=== PATIENT | female | born 1945 | race Caucasian/White ===

== ENCOUNTER 2016-05-22 21:39 | Day surgery (SDC) | payer MEDICARE ==
[~2016-05-22] VITALS: Ht 154.9 cm; Wt 90.3 kg
[~2016-05-22 21:39] MED LIST: CA C1TAB78 PO; CETI10TA17 PO; CHOL10003 PO; CHOL100048 PO; DOXY100C2 PO; ENAL2.5T PO; HCT25T PO; HYDR25TA4 PO; KCL10CCR PO; LEVO100T PO; LVT.112T PO; PANT40TA3 PO; PNT40TEC PO; POTA10CA43 PO; PRD1T PO; PRED5TAB PO; SULF500T5 PO; SULF500T7 PO; TAPE50TA PO
--- NOTE | 2016-05-22 21:45 | ED General ---
General Chief Complaint: Abdominal/GI Problems Stated Complaint: N/V Source of Information: Patient, EMS (ZAY RICARDO APRN) History of Present Illness Time Seen by Provider: 21:43 Initial Comments To ER per EMS from home with sudden onset nausea vomiting and shortness of breath. She does not have any diarrhea. She does have a history of colitis she reports however. This began suddenly 2 hours prior to arrival and she has some vague abdominal discomfort that is not intense. She denies fevers or chills. She states that she was very short of breath initially, but at this time she states "only a little". She also reports that she felt quite anxious. Timing/Duration: 1-3 Hours Severity: Moderate Associated Systoms: Nausea/Vomiting (ZAY RICARDO APRN) Allergies and Home Medications Allergies Coded Allergies: ciprofloxacin (Verified Allergy, Severe, COLITIS, 04/05/15) Tetracyclines (Verified Allergy, Mild, RASH, 04/05/15) acetaminophen (Verified Allergy, Mild, COLITIS, 04/05/15) amoxicillin (Verified Allergy, Mild, COLITIS, 04/05/15) aspirin (Verified Allergy, Mild, COLITIS, 04/05/15) codeine (Verified Allergy, Mild, COLITIS, 04/05/15) naproxen sodium (Verified Allergy, Mild, COLITIS, 04/05/15) indapamide (Verified Allergy, Unknown, 04/05/15) ranitidine HCl (Verified Allergy, Unknown, RASH, 04/05/15) Home Medications Ca Carb & Gluc/Mag Ox & Gluc 1 Each Tablet 1 TAB PO DAILY (Reported) Cetirizine HCl 10 Mg Tablet 10 MG PO DAILY (Reported) Cholecalciferol (Vitamin D3) 1,000 Unit Capsule 1,000 UNIT PO DAILY (Reported) Hydrochlorothiazide 25 Mg Tablet 25 MG PO DAILY (Reported) Levothyroxine Sodium 100 Mcg Tablet 100 MCG PO DAILY (Reported) Pantoprazole Sodium 40 Mg Tablet.dr #30 40 MG PO DAILY Prescribed by: CUBA OWENS on 04/10/15 0736 Potassium Chloride 10 Meq Tablet.er 10 MEQ PO BID (Reported) Prednisone 5 Mg Tablet #60 10 MG PO BID PRN PRN DIARRHEA TAKES 1 TO 2 OF A (5 MG) TABLET NEED FOR URGENT DIARRHEA Prescribed by: CUBA OWENS on 04/10/15 0736 Constitutional: see HPI EENTM: see HPI Respiratory: no symptoms reported Cardiovascular: no symptoms reported Genitourinary: no symptoms reported Musculoskeletal: no symptoms reported Skin: no symptoms reported Psychiatric/Neurological: No Symptoms Reported Hematologic/Lymphatic: No Symptoms Reported (ZAY RICARDO APRN) Past Mkxeqko-Rnccji-Gtitwm Hx Immunizations Up To Date Tetanus Booster (TDap): Unknown Date of Pneumonia Vaccine: Feb 17, 2008 (ZAY RICARDO APRN) Surgeries HX Surgeries: Yes (LEFT SHOULDER, HYST/BSO/APPY, EGD/COLONOSCOPY, PARTIAL THYROIDECTOMY) Surgeries: Adenoidectomy, Appendectomy, Hysterectomy, Oophorectomy, Orthopedic , Thyroidectomy, Tonsillectomy (ZAY RICARDO APRN) Respiratory Hx Respiratory Disorders: Yes Respiratory Disorders: Sleep Apnea (ZAY RICARDO APRN) Cardiovascular Hx Cardiac Disorders: No Cardiac Disorders: Hypertension (ZAY RICARDO APRN) Neurological Hx Neurological Disorders: Yes Neurological Disorders: Headaches /Migraines (ZAY RICARDO APRN) Reproductive System Hx Reproductive Disorders: No Sexually Transmitted Disease: No HIV/AIDS: 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, 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 (ZAY RICARDO APRN) Genitourinary Hx Genitourinary Disorders: Yes Genitourinary Disorders: Bladder Infection (ZAY RICARDO APRN) Gastrointestinal Hx Gastrointestinal Disorders: Yes (ULCERATIVE COLITIS) Gastrointestinal Disorders: Colitis, Gastroesophageal Reflux, Gastrointestinal Bleed (ZAY RICARDO APRN) Musculoskeletal Hx Musculoskeletal Disorders: Yes (SPINAL STENOSIS) Musculoskeletal Disorders: Arthritis, Fibromyalgia, Chronic Back Pain (ZAY RICARDO APRN) Endocrine Hx Endocrine Disorders: Yes (PARTIAL THYROIDECTOMY FOR BENIGN TUMOR) Endocrine Disorders: Hypothyroidsim (ZAY RICARDO APRN) HEENT HX ENT Disorders: No (ZAY RICARDO APRN) Cancer Hx Cancer: No (ZAY RICARDO APRN) Psychosocial Hx Psychiatric Problems: No (ZAY RICARDO APRN) Integumentary HX Skin/Integumentary Disorder: No (ZAY RICARDO APRN) Blood Transfusions Hx Blood Disorders: No Adverse Reaction to a Blood Tr: No (ZAY RICARDO APRN) Family Medical History Family Medial History: Arthritis 19 MOTHER Gastroenteritis G8 BROTHER (ulcers) Hypertension 19 MOTHER Neoplasm 19 FATHER Osteoporosis 19 MOTHER Psychosocial problem 19 MOTHER G8 BROTHER (ZAY RICARDO APRN) Family Medial History: Arthritis 19 MOTHER Gastroenteritis G8 BROTHER (ulcers) Hypertension 19 MOTHER Neoplasm 19 FATHER Osteoporosis 19 MOTHER Psychosocial problem 19 MOTHER G8 BROTHER (MARY KAY LANGSTON MD) Physical Exam Vital Signs Vital Sign - Last 12Hours 05/22/16 21:39 Temp 97.8 Pulse 92 Resp 20 B/P 125/74 (MARY KAY LANGSTON MD) Vital Signs Capillary Refill : (ZAY RICARDO APRN) General Appearance: No Apparent Distress WD/WN Other (alert, oriented, speaking in full sentences without any respiratory distress. Pleasant.) Eyes: Bilateral Eye EOMI, Bilateral Eye Normal Inspection, Bilateral Eye PERRL HEENT: PERRL/EOMI TMs Normal Neck: Full Range of Motion Normal Inspection Respiratory: Normal Breath Sounds No Accessory Muscle Use No Respiratory Distress Gastrointestinal: Normal Bowel Sounds Non Tender Soft Extremity: Normal Capillary Refill Normal Inspection Neurologic/Psychiatric: Alert Oriented x3 No Motor/Sensory Deficits Skin: Normal Color Warm/Dry (ZAY RICARDO APRN) Progress/Results/Core Measures Results/Orders Lab Results Laboratory Tests Test 05/22/16 21:38 05/22/16 22:40 Range/Units Alanine Aminotransferase (ALT/SGPT) 17 0-55 U/L Albumin 4.0 3.2-4.5 G/DL Alkaline Phosphatase 67 40-136 U/L Anion Gap 12 5-14 MMOL/L Aspartate Amino Transf (AST/SGOT) 23 5-34 U/L B-Type Natriuretic Peptide < 10.0 <100.0 PG/ML BUN/Creatinine Ratio 19 Basophils # (Auto) 0.0 0.0-0.1 10^3/uL Basophils (%) (Auto) 0 0-10 % Blood Urea Nitrogen 16 7-18 MG/DL Calcium Level 9.2 8.5-10.1 MG/DL Carbon Dioxide Level 26 21-32 MMOL/L Chloride Level 102 98-107 MMOL/L Creatinine 0.86 0.60-1.30 MG/DL Eosinophils # (Auto) 0.2 0.0-0.3 10^3/uL Eosinophils (%) (Auto) 1 0-10 % Estimat Glomerular Filtration Rate > 60 Glucose Level 163 H 70-105 MG/DL Hematocrit 42 35-52 % Hemoglobin 13.7 11.5-16.0 G/DL Lipase 28 8-78 U/L Lymphocytes # (Auto) 4.1 H 1.0-4.0 X 10^3 Lymphocytes (%) (Auto) 37 12-44 % Mean Corpuscular Hemoglobin 30 25-34 PG Mean Corpuscular Hemoglobin Concent 33 32-36 G/DL Mean Corpuscular Volume 91 80-99 FL Mean Platelet Volume 9.4 7.4-10.4 FL Monocytes # (Auto) 0.6 0.0-1.0 X 10^3 Monocytes (%) (Auto) 5 0-12 % Neutrophils # (Auto) 6.2 1.8-7.8 X 10^3 Neutrophils (%) (Auto) 56 42-75 % Platelet Count 231 130-400 10^3/uL Potassium Level 3.5 L 3.6-5.0 MMOL/L Red Blood Count 4.65 4.35-5.85 10^6/uL Red Cell Distribution Width 12.8 10.0-14.5 % Sodium Level 140 135-145 MMOL/L Total Bilirubin 0.8 0.1-1.0 MG/DL Total Protein 6.5 6.4-8.2 G/DL Troponin I < 0.30 <0.30 NG/ML White Blood Count 11.1 H 4.3-11.0 10^3/uL Urine Bacteria TRACE /HPF Urine Bilirubin NEGATIVE NEGATIVE Urine Casts NONE /LPF Urine Clarity CLEAR Urine Color YELLOW Urine Crystals NONE /LPF Urine Culture Indicated NO Urine Glucose (UA) NEGATIVE NEGATIVE Urine Ketones NEGATIVE NEGATIVE Urine Leukocyte Esterase 1+ H NEGATIVE Urine Mucus NEGATIVE /LPF Urine Nitrite NEGATIVE NEGATIVE Urine Protein NEGATIVE NEGATIVE Urine RBC 0-2 /HPF Urine RBC (Auto) 1+ H NEGATIVE Urine Specific [place] 1.010 L 1.016-1.022 Urine Squamous Epithelial Cells 0-2 /HPF Urine Urobilinogen NORMAL NORMAL MG/DL Urine WBC 2-5 /HPF Urine pH 6 5-9 (MARY KAY LANGSTON MD) My Orders Orders-MARY KAY LANGSTON MD Ondansetron Injection (Zofran Injectio (05/23/16 00:00) Ceftriaxone Injection (Rocephin Injectio (05/23/16 00:00) Hyoscyamine Sl Tablet (Levsin Sl Tablet) (05/23/16 00:00) (MARY KAY LANGSTON MD) Vital Signs/I&O Vital Sign - Last 12Hours 05/22/16 21:39 Temp 97.8 Pulse 92 Resp 20 B/P 125/74 (MARY KAY LANGSTON MD) Progress Note : Progress Note I assumed care of the patient from Zay Ricardo APRN at [address] results and UA. 2330: Patient has return of nausea and is now having some diarrhea. She's had at least 4 stools while here in the ER. Does have history of colitis. CT does show descending colon mild colitis. Concert not significantly elevated and there is no other infectious concerns. She is having vomiting associated with this and this is likely viral related. We will give 1 dose of Rocephin IV and then continue Flagyl IV in the hospital as this has been helping with some of the viral colitis illnesses. Repeat Zofran 4 mg IV and Levsin 0.125 mg by mouth given. Case discussed with Dr. Friend. She accepts patient for admission, observation status. Patient agrees with plan. (MARY KAY LANGSTON MD) Diagnostic Imaging Diagonstic Imaging: CT Plain Films/CT/US/NM/MRI: abdomen, pelvis Comments Finding in the descending colon which may reflect colitis as described. No evidence for bowel obstruction, free fluid or free air. Moderate size hiatal hernia. Per [employer] read. Reviewed: Reviewed Night Darren Study, Reviewed by Me (MARY KAY LANGSTON MD) Departure Communication Time/Spoke to Admitting Phy: 23:45 (MARY KAY LANGSTON MD) Impression Impression: Primary Impression: Colitis Additional Impression: Nausea vomiting and diarrhea Disposition: ADMITTED INPATIENT Condition: Stable Decision to Admit Reason: Admit from ER (General) Decision to Admit/Date: May 22, 2016 Time/Decision to Admit Time: 23:45 (MARY KAY LANGSTON MD) Departure-Patient Inst. Referrals: JANETTE FRIEND MD (PCP) Primary Care Physician ZAY RICARDO APRN May 22, 2016 21:45 MARY KAY LANGSTON MD May 22, 2016 23:56
[2016-05-22 21:48] LABS: BASOPHILS % (AUTO) 0 % (0-10); EOSINOPHILS # (AUTO) 0.2 10^3/uL (0.0-0.3); EOSINOPHILS % (AUTO) 1 % (0-10); LYMPHOCYTES # (AUTO) 4.1 X 10^3 (1.0-4.0); LYMPHOCYTES % (AUTO) 37 % (12-44); MEAN CORPUSCULAR HEMOGLOBIN 30 PG (25-34); MEAN CORPUSCULAR HGB CONC 33 G/DL (32-36); MEAN CORPUSCULAR VOLUME 91 FL (80-99); MEAN PLATELET VOLUME 9.4 FL (7.4-10.4); MONOCYTES # (AUTO) 0.6 X 10^3 (0.0-1.0); MONOCYTES % (AUTO) 5 % (0-12); NEUTROPHILS # (AUTO) 6.2 X 10^3 (1.8-7.8); NEUTROPHILS % (AUTO) 56 % (42-75); PLATELET COUNT 231 10^3/uL (130-400); RED BLOOD COUNT 4.65 10^6/uL (4.35-5.85); RED CELL DISTRIBUTION WIDTH 12.8 % (10.0-14.5); WHITE BLOOD COUNT 11.1 10^3/uL (4.3-11.0)
[2016-05-22] MEDS ORDERED: POTA10TA10 PO (22:11)
[2016-05-22 22:18] LABS: ALANINE AMINOTRANSFERASE 17 U/L (0-55); ANION GAP 12 MMOL/L (5-14); ASPARTATE AMINO TRANSFERASE 23 U/L (5-34); BILIRUBIN,TOTAL 0.8 MG/DL (0.1-1.0); BLOOD UREA NITROGEN 16 MG/DL (7-18); BUN/CREATININE RATIO 19; CALCIUM 9.2 MG/DL (8.5-10.1); CARBON DIOXIDE 26 MMOL/L (21-32); CHLORIDE 102 MMOL/L (98-107); CREATININE SERUM 0.86 MG/DL (0.60-1.30); GFR ESTIMATED > 60; GLUCOSE 163 MG/DL (70-105); LIPASE 28 U/L (8-78); POTASSIUM 3.5 MMOL/L (3.6-5.0); SODIUM 140 MMOL/L (135-145); TOTAL PROTEIN 6.5 G/DL (6.4-8.2)
[2016-05-22 22:24] LABS: TROPONIN I < 0.30 NG/ML (<0.30)
[2016-05-22 22:55] LABS: BILIRUBIN,URINE NEGATIVE (NEGATIVE); KETONES,URINE NEGATIVE (NEGATIVE); LEUKOCYTE ESTERASE ,URINE 1+ (NEGATIVE); NITRITE,URINE NEGATIVE (NEGATIVE); PH,URINE 6 (5-9); PROTEIN,URINE NEGATIVE (NEGATIVE); SQUAMOUS EPITHELIAL CELL,UR 0-2 /HPF; UROBILINOGEN,URINE NORMAL (NORMAL)
[2016-05-23] MEDS ORDERED: cefTRIAXone INJECTION 1,000 MG in NS (IVPB) 50 ML IV ONE ×2
[2016-05-23] MEDS ORDERED: HYOSCYAMINE 0.125 MG (LEVSIN) TAB SL ONE
[2016-05-23] MEDS ORDERED: ONDANSETRON 4 MG/2 ML (SDV) Z0FRAN IVP ONE
[2016-05-23 00:45] VITALS: BP 159/79
[2016-05-23] MEDS ORDERED: CATHETER FLUSH 10 ML SYR IV PRN (01:00)
[2016-05-23] MEDS ORDERED: fentaNYL INJECTION 100 MCG/2 ML AMP IV PRN (01:00)
[2016-05-23] MEDS: NS IV 1000 ML 1,000 ML IV SCH ×2 (01:39→15:32)
[2016-05-23] MEDS: ONDANSETRON 4 MG/2 ML (SDV) Z0FRAN IV PRN ×3 (04:01→19:26)
[2016-05-23 04:33] VITALS: BP 161/73
[2016-05-23] MEDS: CATHETER FLUSH 10 ML SYR IV SCH ×3 (05:39→21:36)
[2016-05-23] MEDS: metroNIDAZOLE 500 MG/100 ML IVPB (PRE-MIX) IV SCH ×3 (05:39→21:36)
[2016-05-23 06:15] LABS: BASOPHILS % (AUTO) 0 % (0-10); EOSINOPHILS % (AUTO) 0 % (0-10); LYMPHOCYTES # (AUTO) 1.4 X 10^3 (1.0-4.0); LYMPHOCYTES % (AUTO) 13 % (12-44); MEAN CORPUSCULAR HEMOGLOBIN 29 PG (25-34); MEAN CORPUSCULAR HGB CONC 33 G/DL (32-36); MEAN CORPUSCULAR VOLUME 90 FL (80-99); MEAN PLATELET VOLUME 9.9 FL (7.4-10.4); MONOCYTES # (AUTO) 0.5 X 10^3 (0.0-1.0); MONOCYTES % (AUTO) 5 % (0-12); NEUTROPHILS # (AUTO) 8.6 X 10^3 (1.8-7.8); NEUTROPHILS % (AUTO) 82 % (42-75); PLATELET COUNT 205 10^3/uL (130-400); RED BLOOD COUNT 4.56 10^6/uL (4.35-5.85); RED CELL DISTRIBUTION WIDTH 12.8 % (10.0-14.5); WHITE BLOOD COUNT 10.5 10^3/uL (4.3-11.0)
[2016-05-23 06:35] LABS: ALANINE AMINOTRANSFERASE 17 U/L (0-55); ANION GAP 12 MMOL/L (5-14); ASPARTATE AMINO TRANSFERASE 23 U/L (5-34); BILIRUBIN,TOTAL 0.7 MG/DL (0.1-1.0); BLOOD UREA NITROGEN 14 MG/DL (7-18); BUN/CREATININE RATIO 18; CALCIUM 8.9 MG/DL (8.5-10.1); CARBON DIOXIDE 24 MMOL/L (21-32); CHLORIDE 103 MMOL/L (98-107); CREATININE SERUM 0.79 MG/DL (0.60-1.30); GFR ESTIMATED > 60; GLUCOSE 115 MG/DL (70-105); POTASSIUM 3.7 MMOL/L (3.6-5.0); SODIUM 139 MMOL/L (135-145); TOTAL PROTEIN 6.4 G/DL (6.4-8.2)
--- NOTE | 2016-05-23 07:02 | Diagnostic Imaging Report ---
Clinical indication: Patient with shortness of air, nausea, vomiting, weakness and fatigue for approximately 1-2 hours. Exam: Chest x-ray PA and lateral views. Comparisons: Chest x-ray dated 05/08/2010. Findings: Lungs/pleura: Lungs are clear. There is no pneumothorax. There is no pleural effusion. Mediastinum: Again seen tortuous descending thoracic aorta. Pulmonary vasculature: Unremarkable. Heart: Unremarkable. Bones/extrathoracic soft tissue: There are mildly hypertrophic degenerative osteophytes scattered throughout the thoracic spine. Surgical suture again seen overlying the proximal left humeral head. Impression: There is no radiographic evidence of acute cardiopulmonary process. Dictated by: Dictated on workstation # [id number]
--- NOTE | 2016-05-23 07:49 | Diagnostic Imaging Report ---
PROCEDURE: CT abdomen and pelvis without contrast. TECHNIQUE: Multiple contiguous axial images were obtained through the abdomen and pelvis without the use of intravenous contrast. INDICATION: Nausea, vomiting and shortness of breath. Abdominal pain. COMPARISON: 04/05/15. FINDINGS: The lung bases are clear. A large hiatal hernia is present. The gallbladder, liver, spleen, pancreas, adrenal glands, kidneys and vascular structures are unremarkable. There was no free air or free fluid. The course and caliber of the large and small bowel are grossly unremarkable. There is questionable colonic wall thickening of the descending colon. However, this is likely normal. Distal ureters and urinary bladder are normal. There is no inflammatory process. Fat-containing abdominal wall hernia noted. Osseous structures are age-appropriate. The uterus is surgically absent. There is no abscess, free air or free fluid. IMPRESSION: 1. Hiatal hernia. 2. The remainder of the abdomen and pelvis is within normal limits. 3. Surgically absent uterus. 4. Not mentioned above, slight constipation without obstruction. Dictated by: Dictated on workstation # [id number]
[2016-05-23 08:12] VITALS: BP 132/78
[2016-05-23 12:55] VITALS: BP 139/71
[2016-05-23] MEDS ORDERED: MAGNESIUM CITRATE 300 ML BTL PO ONE ×2 (13:15→17:15)
[2016-05-23] MEDS ORDERED: predniSONE 5 MG TAB PO PRN (13:15)
--- NOTE | 2016-05-23 14:05 | Progress Note (SOAP) ---
Subjective Subjective/Events-last exam abdominal pain over the epigastric region with bloody diarrhea of 3 days' duration. Established ulcerative colitis of over 40 years duration. Review of Systems General: No Chills, No Night Sweats, No Fatigue, No Malaise HEENT: No Head Aches, No Eye Pain, No Ear Pain, No Dysphasia, No Sinus Congestion, No Post Nasal Drip, No Sore Throat Pulmonary: No Dyspnea, No Cough, No Pleuritic Chest Pain Cardiovascular: No: Chest Pain, Edema, Lt Headedness, Orthopnea, Palpitations, Paroxysmal Noc. Dyspnea Gastrointestinal: : Abdominal Pain: Diarrhea: Hematochezia: Nausea Genitourinary: No Dysuria, No Frequency, No Incontinence, No Hematuria, No Retention Musculoskeletal: No: arm pain, back pain, foot pain, hand pain, leg pain, neck pain, other, shoulder pain Neurological: No: Change in speech, Confusion, Incoordination, Numbness, Other , Seizures, Weakness Objective Exam Vital Signs Date Time Temp Pulse Resp B/P Pulse Ox O2 Delivery O2 Flow Rate FiO2 05/23/16 12:55 98.3 88 16 139/71 97 Room Air 05/23/16 08:12 97.3 85 16 132/78 96 Room Air 05/23/16 04:33 98.2 89 20 161/73 96 Room Air 05/23/16 00:45 98.9 97 17 159/79 97 Room Air 05/23/16 00:35 88 20 94 05/23/16 00:30 Room Air 05/22/16 21:39 97.8 92 20 125/74 I & O 05/23/16 07:00 Intake Total 400 ml Balance 400 ml Capillary Refill : Less Than 3 Seconds General Appearance: No Apparent Distress HEENT: PERRL/EOMI Neck: Normal Inspection Respiratory: Lungs Clear Cardiovascular: Regular Rate, Rhythm Gastrointestinal: non tender soft Extremity: Normal Capillary Refill Normal Inspection Neurologic/Psychiatric: Alert Oriented x3 Skin: Warm/Dry Results Lab Laboratory Tests 05/22/16 21:38: Alanine Aminotransferase (ALT/SGPT) 17, Albumin 4.0, Alkaline Phosphatase 67, Anion Gap 12, Aspartate Amino Transf (AST/SGOT) 23, B-Type Natriuretic Peptide < 10.0, BUN/Creatinine Ratio 19, Basophils # (Auto) 0.0, Basophils (%) (Auto) 0 , Blood Urea Nitrogen 16, Calcium Level 9.2, Carbon Dioxide Level 26, Chloride Level 102, Creatinine 0.86, Eosinophils # (Auto) 0.2, Eosinophils (%) (Auto) 1, Estimat Glomerular Filtration Rate > 60, Glucose Level 163H, Hematocrit 42, Hemoglobin 13.7, Lipase 28, Lymphocytes # (Auto) 4.1H, Lymphocytes (%) (Auto) 37 , Mean Corpuscular Hemoglobin 30, Mean Corpuscular Hemoglobin Concent 33, Mean Corpuscular Volume 91, Mean Platelet Volume 9.4, Monocytes # (Auto) 0.6, Monocytes (%) (Auto) 5, Neutrophils # (Auto) 6.2, Neutrophils (%) (Auto) 56, Platelet Count 231, Potassium Level 3.5L, Red Blood Count 4.65, Red Cell Distribution Width 12.8, Sodium Level 140, Total Bilirubin 0.8, Total Protein 6.5, Troponin I < 0.30, White Blood Count 11.1H 05/22/16 22:40: Urine Bacteria TRACE, Urine Bilirubin NEGATIVE, Urine Casts NONE, Urine Clarity CLEAR, Urine Color YELLOW, Urine Crystals NONE, Urine Culture Indicated NO, Urine Glucose (UA) NEGATIVE, Urine Ketones NEGATIVE, Urine Leukocyte Esterase 1+ H, Urine Mucus NEGATIVE, Urine Nitrite NEGATIVE, Urine Protein NEGATIVE, Urine RBC 0-2, Urine RBC (Auto) 1+H, Urine Specific [place] 1.010L, Urine Squamous Epithelial Cells 0-2, Urine Urobilinogen NORMAL, Urine WBC 2-5, Urine pH 6 05/23/16 01:00: Stool Occult Blood Immunoassay POSITIVEH 05/23/16 05:20: Alanine Aminotransferase (ALT/SGPT) 17, Albumin 4.0, Alkaline Phosphatase 67, Anion Gap 12, Aspartate Amino Transf (AST/SGOT) 23, BUN/Creatinine Ratio 18, Basophils # (Auto) 0.0, Basophils (%) (Auto) 0, Blood Urea Nitrogen 14, Calcium Level 8.9, Carbon Dioxide Level 24, Chloride Level 103, Creatinine 0.79, Eosinophils # (Auto) 0.0, Eosinophils (%) (Auto) 0, Estimat Glomerular Filtration Rate > 60, Glucose Level 115H, Hematocrit 41, Hemoglobin 13.4, Lymphocytes # (Auto) 1.4, Lymphocytes (%) (Auto) 13, Mean Corpuscular Hemoglobin 29, Mean Corpuscular Hemoglobin Concent 33, Mean Corpuscular Volume 90, Mean Platelet Volume 9.9, Monocytes # (Auto) 0.5, Monocytes (%) (Auto) 5, Neutrophils # (Auto) 8.6H, Neutrophils (%) (Auto) 82H, Platelet Count 205, Potassium Level 3.7, Red Blood Count 4.56, Red Cell Distribution Width 12.8, Sodium Level 139, Total Bilirubin 0.7, Total Protein 6.4, White Blood Count 10.5 05/23/16 12:03: Hematocrit 40, Hemoglobin 13.0 Microbiology 05/23/16 C. difficile GDH Antigen & Toxins - Final, Resulted 05/23/16 Stool Culture, Resulted Pending Assessment/Plan Assessment/Plan Assess & Plan/Chief Complaint lady with upper abdominal pain and vomiting. Bloody diarrhea. Previous ulcerative colitis. Reasonable to perform EGD and colonoscopy. Scheduled for tomorrow Diagnosis/Problems: Clinical Quality Measures DVT/VTE Risk/Contraindication: Risk Factor Score Per Nursin RFS Level Per Nursing on Admit: 4+=Very High LEOPOLDO JOHNSTON MD May 23, 2016 2:05 pm
--- NOTE | 2016-05-23 14:21 | History & Physicial ---
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 THE PATIENT REPORTS THAT SHE HAS HAD ISSUES WITH ULCERATIVE COLITIS OFF AND ON FOR MANY YEARS. SHE REPORTS THAT HER LAST FLAIR WAS MARCH OF 2015 WITH A SHORT HOSPITAL STAY. SHE STATES THAT SHE CAN USUALLY TELL WHEN THE FLAIRS ARE GOING TO OCCUR, BUT THIS TIME SHE WAS EXPECTING THAT HER STOMACH UPSET WAS DUE TO A FISH SANDWICH SHE HAD ON WEDNESDAY. SHE HAD SOME NAUSEA, EMESIS AND THEN ON WEDNESDAY NIGHT SHE STARTED TO HAVE FECAL URGENCY AND BY THE TIME SHE GOT TO THE HOSPITAL, SHE STARTED TO HAVE GROSSLY BLOODY STOOLS. Date of Admission May 23, 2016 at 00:00 I consulted on this patient on 05/23/16 13:55 Attending Physician Eduardo Jaramillo MD Admitting Physician JANETTE CRUZ MD Consult Allergies and Home Medications Allergies Coded Allergies: ciprofloxacin (Verified Allergy, Severe, COLITIS, 04/05/15) egg (Verified Allergy, Severe, ANAPHYLAXIS, 05/23/16) perfume (Verified Allergy, Severe, ANAPHYLAXIS, 05/23/16) Tetracyclines (Verified Allergy, Mild, RASH, 04/05/15) acetaminophen (Verified Allergy, Mild, COLITIS, 04/05/15) amoxicillin (Verified Allergy, Mild, COLITIS, 04/05/15) aspirin (Verified Allergy, Mild, COLITIS, 04/05/15) codeine (Verified Allergy, Mild, COLITIS, 04/05/15) naproxen sodium (Verified Allergy, Mild, COLITIS, 04/05/15) indapamide (Verified Allergy, Unknown, 04/05/15) ranitidine HCl (Verified Allergy, Unknown, RASH, 04/05/15) Uncoded Allergies: seasonal (Allergy, Severe, ANAPHYLAXIS, 05/23/16) smoke (Allergy, Severe, ANAPHYLAXIS, 05/23/16) Home Medications Ca Carb & Gluc/Mag Ox & Gluc 1 Each Tablet 1 TAB PO DAILY (Reported) Cetirizine HCl 10 Mg Tablet 10 MG PO DAILY (Reported) Cholecalciferol (Vitamin D3) 1,000 Unit Capsule 1,000 UNIT PO DAILY (Reported) Hydrochlorothiazide 25 Mg Tablet 25 MG PO DAILY (Reported) Levothyroxine Sodium 100 Mcg Tablet 100 MCG PO DAILY (Reported) Pantoprazole Sodium 40 Mg Tablet. #30 40 MG PO DAILY Prescribed by: CUBA OWENS on 04/10/15 0736 Potassium Chloride 10 Meq Tablet.er 10 MEQ PO BID (Reported) Prednisone 5 Mg Tablet #60 10 MG PO BID PRN PRN DIARRHEA TAKES 1 TO 2 OF A (5 MG) TABLET NEED FOR URGENT DIARRHEA Prescribed by: CUBA OWENS on 04/10/15 0736 Past Xmlakxo-[id number]-[id number] Hx Patient Social History Marrital Status: Living Status: LIVES AT HOME WITH SPOUSE Employed/Student: retired Alcohol Use: Denies Use Recreational Drug Use: No Smoking Status: Never a Smoker 2nd Hand Smoke Exposure: No Physical Abuse Screen: No Sexual Abuse: No Recent Foreign Travel: No Contact w/other who traveled: No Recent Hopitalizations: No Recent Infectious Disease Expo: No Immunizations Up To Date Tetanus Booster (TDap): Unknown Date of Pneumonia Vaccine: Apr 19, 2013 Seasonal Allergies Seasonal Allergies: Yes Surgeries HX Surgeries: Yes (LEFT SHOULDER, HYST/BSO/APPY, EGD/COLONOSCOPY, PARTIAL THYROIDECTOMY) Surgeries: Adenoidectomy, Appendectomy, Hysterectomy, Oophorectomy, Orthopedic , Thyroidectomy, Tonsillectomy Respiratory Hx Respiratory Disorders: Yes Cardiovascular Hx Cardiovascular Disorders: No Cardiac Disorders: Hypertension Neurological Hx Neurological Disorders: Yes Neurological Disorders: Headaches /Migraines Reproductive System : No Hx Reproductive Disorders: No Sexually Transmitted Disease: No HIV/AIDS: No Female Reproductive Disorders: Polycystic Ovarian Dis Genitourinary Hx Genitourinary Disorders: Yes Genitourinary Disorders: Bladder Infection Gastrointestinal Hx Gastrointestinal Disorders: Yes (ULCERATIVE COLITIS) Gastrointestinal Disorders: Colitis, Gastroesophageal Reflux, Gastrointestinal Bleed Musculoskeletal Hx Musculoskeletal Disorders: Yes (SPINAL STENOSIS) Musculoskeletal Disorders: Arthritis, Fibromyalgia, Chronic Back Pain Endocrine Hx Endocrine Disorders: Yes (PARTIAL THYROIDECTOMY FOR BENIGN TUMOR) Endocrine Disorders: Hypothyroidsim HEENT HX ENT Disorders: No Loss of Vision: Denies Hearing Impairment: Denies Cancer Hx Cancer: No Psychosocial Hx Psychiatric Problems: No Integumentary HX Skin/Integumentary Disorder: No Blood Transfusions Hx Blood Disorders: No Adverse Reaction to a Blood Tr: No Family Medical History Significant Family History: Heart Disease, Cancer, Hypertension Family Hx: Arthritis 19 MOTHER Gastroenteritis G8 BROTHER (ulcers) Hypertension 19 MOTHER Neoplasm 19 FATHER Osteoporosis 19 MOTHER Psychosocial problem 19 MOTHER G8 BROTHER Constitutional: No dizziness, No fever, No weakness EENTM: No mouth pain, No mouth swelling, No throat pain, No throat swelling Respiratory: No cough, No dyspnea on exertion, No short of breath Gastrointestinal: abdominal pain (LLQ, LUQ) melena nauseaNo vomiting Genitourinary: no symptoms reported Musculoskeletal: No back pain, No muscle weakness Skin: No dryness, No lesions, No rash Psychiatric/Neurological: Denies Anxiety, Denies Depressed All Other Systems Reviewed Negative Unless Noted: Yes Physical Exam Vital Signs Vital Sign - Last 12Hours 05/22/16 05/23/16 05/23/16 21:39 00:30 00:35 Temp 97.8 Pulse 92 Resp 20 B/P 125/74 Pulse Ox 94 O2 Delivery Room Air Capillary Refill : Less Than 3 Seconds General Appearance: No Apparent Distress WD/WN Eyes: Bilateral Eye EOMI, Bilateral Eye Normal Inspection, Bilateral Eye PERRL HEENT: PERRL/EOMI Pharynx Normal Neck: Full Range of Motion Supple Respiratory: Chest Non Tender Lungs Clear Normal Breath Sounds No Accessory Muscle Use No Respiratory Distress Cardiovascular: Regular Rate, Rhythm No Edema Gastrointestinal: Normal Bowel Sounds Soft Tenderness (EPIGASTRIUM) Rectal: Deferred Extremity: Normal Capillary Refill Normal Inspection Normal Range of Motion Non Tender No Calf Tenderness No Pedal Edema Neurologic/Psychiatric: Alert Oriented x3 No Motor/Sensory Deficits 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 JOHNSTON - DEFER TREATMENT TO DR. JOHNSTON - HE IS PLANNING ON AN EGD AND COLONOSCOPY TOMORROW. SHE REPORTS THAT SHE HAD A COLONOSCOPY DURING ONE ON HER HOSPITAL STAYS - LOOKING THROUGH THE RECORDS IT WAS IN [address] MEDINA. SHE THINKS THAT SHE HAS HAD AN EGD BUT NO REPORT WAS FOUND IN THE COMPUTER LOOKING BACK OVER 10 YEARS. DVT PROPHYLAXIS WITH SCD'S - LOVENOX CONTRAINDICATED DUE TO HER BLOODY STOOLS HTN - RESTART HOME MEDS HYPOTHYROID - RESTART LEVOTHYROXINE INTERMITTENT STEROID USE - WILL GIVE DOSE OF SOLUMEDROL TODAY GERD - PROTONIX IV Admission Diagnosis ULCERATIVE COLITIS FLAIR GROSSLY BLOODY DIARRHEA EPIGASTRIC ABDOMINAL PAIN LEFT LOWER QUADRANT ABDOMINAL PAIN HYPERTENSION HYPOTHYROIDISM Clinical Quality Measures DVT/VTE Risk/Contraindication: Risk Factor Score Per Nursin RFS Level Per Nursing on Admit: 4+=Very High JANETTE CRUZ MD May 23, 2016 14:21
[2016-05-23] MEDS ORDERED: methylPREDNISolone 125 MG (Solu-MEDROL) VIAL IVP ONE (14:30)
[2016-05-23] MEDS ORDERED: PANTOPRAZOLE 40 MG/10 ML (PROTONIX) VIAL IV ONE (14:30)
[2016-05-23 16:21] VITALS: BP 160/87
[2016-05-23] MEDS: methylPREDNISolone 125 MG (Solu-MEDROL) VIAL IVP SCH (18:14)
[2016-05-23 20:32] VITALS: BP 174/85
[2016-05-23] MEDS: PANTOPRAZOLE 40 MG/10 ML (PROTONIX) VIAL IV SCH (21:36)
[2016-05-24] VITALS (8 sets, daily range): BP systolic 105–138; BP diastolic 56–79
[2016-05-24] MEDS: methylPREDNISolone 125 MG (Solu-MEDROL) VIAL IVP SCH ×4 (01:03→17:47)
[2016-05-24 04:57] LABS: MEAN PLATELET VOLUME 9.7 FL (7.4-10.4); RED BLOOD COUNT 4.2 10^6/uL (4.35-5.85); RED CELL DISTRIBUTION WIDTH 12.7 % (10.0-14.5); WHITE BLOOD COUNT 7.8 10^3/uL (4.3-11.0)
[2016-05-24 05:22] LABS: ALANINE AMINOTRANSFERASE 17 U/L (0-55); ALBUMIN 3.5 G/DL (3.2-4.5); ANION GAP 9 MMOL/L (5-14); ASPARTATE AMINO TRANSFERASE 25 U/L (5-34); BILIRUBIN,TOTAL 0.9 MG/DL (0.1-1.0); BLOOD UREA NITROGEN 11 MG/DL (7-18); BUN/CREATININE RATIO 15; CALCIUM 8.1 MG/DL (8.5-10.1); CARBON DIOXIDE 21 MMOL/L (21-32); CHLORIDE 108 MMOL/L (98-107); CREATININE SERUM 0.71 MG/DL (0.60-1.30); GFR ESTIMATED > 60; GLUCOSE 158 MG/DL (70-105); POTASSIUM 3.7 MMOL/L (3.6-5.0); SODIUM 138 MMOL/L (135-145); TOTAL PROTEIN 5.6 G/DL (6.4-8.2)
[2016-05-24] MEDS: CATHETER FLUSH 10 ML SYR IV SCH ×3 (05:48→20:13)
[2016-05-24] MEDS: LEVOTHYROXINE 100 MCG (LEVOTHROID) TAB PO SCH (06:26)
[2016-05-24] MEDS: metroNIDAZOLE 500 MG/100 ML IVPB (PRE-MIX) IV SCH ×3 (06:26→21:37)
[2016-05-24] MEDS: NS IV 1000 ML 1,000 ML IV SCH ×3 (06:28→20:13)
[2016-05-24] MEDS: PANTOPRAZOLE 40 MG/10 ML (PROTONIX) VIAL IV SCH ×2 (08:15→20:13)
--- NOTE | 2016-05-24 12:03 | Progress Note (SOAP) ---
Subjective Subjective/Events-last exam PT REPORTS THAT SHE IS FEELING BETTER THIS MORNING. SHE REPORTS THAT HER BLOODY STOOLS STOPPED LAST NIGHT RIGHT BEFORE THE MAG CITRATE WAS STARTED. SHE REPORTS THAT SHE STILL HAS SOME CRAMPY ABDOMINAL PAIN, BUT IT IS DEFINITELY BETTER TODAY THAN ON ADMISSION. Review of Systems General: No Chills, No Fatigue HEENT: No Head Aches Pulmonary: No Dyspnea, No Cough Cardiovascular: No: Chest Pain, Palpitations Gastrointestinal: : Abdominal Pain: Other (LOOSE STOOLS DUE TO MAG CITRATE)No: Nausea Genitourinary: No Dysuria, No Frequency Musculoskeletal: No: back pain Neurological: No: Confusion, Weakness Objective Exam Vital Signs Date Time Temp Pulse Resp B/P Pulse Ox O2 Delivery O2 Flow Rate FiO2 05/24/16 08:00 98.1 82 18 113/67 95 Room Air 05/24/16 04:00 98.2 84 20 105/60 92 Room Air 05/24/16 00:00 97.5 93 20 120/56 95 Room Air 05/23/16 20:32 99.0 97 18 174/85 93 Room Air 05/23/16 16:21 98.5 83 18 160/87 97 Room Air 05/23/16 12:55 98.3 88 16 139/71 97 Room Air I & O 05/24/16 07:00 Intake Total 2640 ml Output Total 6800 ml Balance -4160 ml Capillary Refill : Less Than 3 Seconds General Appearance: No Apparent Distress WD/WN HEENT: PERRL/EOMI Neck: Full Range of Motion Supple Respiratory: Chest Non Tender Lungs Clear Normal Breath Sounds No Accessory Muscle Use No Respiratory Distress Cardiovascular: Regular Rate, Rhythm No Edema Gastrointestinal: normal bowel sounds tenderness (FAINTLY TTP OVER EPIGASTRIUM AND LEFT LOWER QUADRANT) Extremity: Normal Capillary Refill No Calf Tenderness No Pedal Edema Neurologic/Psychiatric: Alert Oriented x3 No Motor/Sensory Deficits Normal Mood/Affect Skin: Normal Color Warm/Dry Lymphatic: No Adenopathy Results Lab Laboratory Tests 05/23/16 12:03: Hematocrit 40, Hemoglobin 13.0 05/24/16 04:20: Hematocrit 38, Hemoglobin 12.5, Alanine Aminotransferase (ALT/SGPT) 17, Albumin 3.5, Alkaline Phosphatase 53, Anion Gap 9, Aspartate Amino Transf (AST/SGOT) 25 , BUN/Creatinine Ratio 15, Blood Urea Nitrogen 11, Calcium Level 8.1L, Carbon Dioxide Level 21, Chloride Level 108H, Creatinine 0.71, Estimat Glomerular Filtration Rate > 60, Glucose Level 158H, Mean Corpuscular Hemoglobin 30, Mean Corpuscular Hemoglobin Concent 33, Mean Corpuscular Volume 90, Mean Platelet Volume 9.7, Platelet Count 181, Potassium Level 3.7, Red Blood Count 4.20L, Red Cell Distribution Width 12.7, Sodium Level 138, Total Bilirubin 0.9, Total Protein 5.6L, White Blood Count 7.8 Microbiology 05/23/16 C. difficile GDH Antigen & Toxins - Final, Resulted 05/23/16 Stool Culture - Preliminary, Resulted No stool pathogens as yet isolated. ... Assessment/Plan Assessment/Plan Assess & Plan/Chief Complaint ULCERATIVE COLITIS FLAIR GROSSLY BLOODY DIARRHEA EPIGASTRIC ABDOMINAL PAIN LEFT LOWER QUADRANT ABDOMINAL PAIN HYPERTENSION HYPOTHYROIDISM ULCERATIVE COLITIS FLAIR - CONSULT PLACED TO DR. JOHNSTON - DEFER TREATMENT TO DR. JOHNSTON - HE IS PLANNING ON AN EGD AND COLONOSCOPY TODAY DVT PROPHYLAXIS WITH SCD'S - LOVENOX CONTRAINDICATED DUE TO HER HEMATOCHEZIA HTN - RESTARTED HOME MEDS HYPOTHYROID - RESTARTED LEVOTHYROXINE INTERMITTENT STEROID USE - CONTINUE WITH SOLUMEDROL TODAY. DR. JARAMILLO TO TAKE OVER CARE OF PATIENT TODAY. Diagnosis/Problems: Clinical Quality Measures DVT/VTE Risk/Contraindication: Risk Factor Score Per Nursin RFS Level Per Nursing on Admit: 4+=Very High Contraindications-Pharm: Other *list below* Other: PT HAS BLOODY DIARRHEA - LOVENOX CONTRAINDICATED JANETTE CRUZ MD May 24, 2016 12:03
[2016-05-24] MEDS ORDERED: fentaNYL INJECTION 100 MCG/2 ML AMP ONE ×2 (12:19)
[2016-05-24] MEDS ORDERED: NS IV 500 ML 500 ML IV PRN (12:20)
[2016-05-24] MEDS ORDERED: MIDAZOLAM 2 MG/2 ML (VERSED) VIAL ONE ×4 (12:20)
[2016-05-24] MEDS ORDERED: HURRICAINE EXT TUBE (BENZOCAINE) ONE (12:20)
[2016-05-24] MEDS ORDERED: NS IV 500 ML 500 ML ONE (12:22)
[2016-05-24] MEDS: fentaNYL INJECTION 100 MCG/2 ML AMP IVP PRN ×4 (12:22→12:44)
[2016-05-24] MEDS: MIDAZOLAM 2 MG/2 ML (VERSED) VIAL IVP PRN ×4 (12:23→12:41)
[2016-05-24] MEDS ORDERED: HURRICAINE EXT TUBE (BENZOCAINE) XX PRN (13:00)
--- NOTE | 2016-05-24 13:09 | Progress Note-Post Operative ---
Post-Operative Progess Note Pre-Operative Diagnosis nnausea and vomiting. hematochezia Post-Operative Diagnosis tortuous esophagus. Gastric polyps. Distal gastritis Hemorrhoids. Nonbleeding sigmoid diverticula. Ulceration and erythema of the mucosa from sigmoid to spine flexure, possibly ischemic colitis Post-Op Procedure Note Date of Procedure: May 24, 2016 Name of Procedure: EGD with antral biopsy. Gastric polypectomy Colonoscopy with biopsy Anesthesia Type sedation Specimen(s) collected antral mucosa. Gastric polyps. Mucosa of splenic flexure and sigmoid colon LEOPOLDO JOHNSTON MD May 24, 2016 1:08 pm
[2016-05-24] MEDS: ONDANSETRON 4 MG/2 ML (SDV) Z0FRAN IV PRN (20:13)
[2016-05-24] MEDS ORDERED: CIPROFLOXACIN IV 400MG/200ML 200 ML IV SCH (21:00)
[2016-05-25] MEDS: methylPREDNISolone 125 MG (Solu-MEDROL) VIAL IVP SCH ×2 (00:07→05:27)
[2016-05-25] MEDS: metroNIDAZOLE 500 MG/100 ML IVPB (PRE-MIX) IV SCH (05:27)
[2016-05-25] MEDS: CATHETER FLUSH 10 ML SYR IV SCH (05:28)
[2016-05-25] MEDS: PANTOPRAZOLE 40 MG/10 ML (PROTONIX) VIAL IV SCH (08:09)
[2016-05-25] MEDS: LEVOTHYROXINE 100 MCG (LEVOTHROID) TAB PO SCH (08:09)
[2016-05-25 08:17] VITALS: BP 147/89
[2016-05-25 08:19] VITALS: BP 147/89
--- NOTE | 2016-05-25 08:39 | Discharge Summary ---
Diagnosis/Chief Complaint Date of Admission May 23, 2016 at 00:00 Date of Discharge May 25 Admission Diagnosis Admission Diagnosis ULCERATIVE COLITIS FLARE HEMATOCHEZIA SECONDARY TO ISCHEMIC COLITIS EPIGASTRIC ABDOMINAL PAIN LEFT LOWER QUADRANT ABDOMINAL PAIN HYPERTENSION HYPOTHYROIDISM Discharge Diagnosis ULCERATIVE COLITIS FLARE HEMATOCHEZIA SECONDARY TO ISCHEMIC COLITIS EPIGASTRIC ABDOMINAL PAIN LEFT LOWER QUADRANT ABDOMINAL PAIN HYPERTENSION HYPOTHYROIDISM Reason Hospital Visit 71 yo female admitted for acute onset bloody stools. She has a history of ulcerative colitis- last flare-up was about 11 months ago requiring admission. Discharge Summary Hospital Course Hospital Course Patient admitted for ulcerative colitis flare- Hemoglobin remained stable throughout admission. She was started on metronidazole and IV steroids. Dr. Thompson consulted. EGD and Colonoscopy were performed on 05/24/16 with biopsies taken. She continued to improve during her stay, tolerated regular diet before discharge. Hematochezia improved. Pt will complete a 10 day course of metronidazole and will taper her steroids down over the next couple days. Pt will follow up with Dr. Thompson in 2 months for repeat colonoscopy and EGD- to visual any changes such as stenosis or scarring of the colon, specifically from the splenic flexure to the sigmoid. She was doing well this AM from a GI standpoint- but was coughing and having difficulty dealing with hospital staff perfumes/hair spray. She is intolerant of strong smells. Pt deemed stable for discharge 05/25/16. Labs Laboratory Tests 05/22/16 21:38: Glucose Level 163H, Lymphocytes # (Auto) 4.1H, Potassium Level 3.5L, White Blood Count 11.1H 05/22/16 22:40: Urine Leukocyte Esterase 1+H, Urine RBC (Auto) 1+H, Urine Specific [place] 1.010L 05/23/16 01:00: Stool Occult Blood Immunoassay POSITIVEH 05/23/16 05:20: Glucose Level 115H, Neutrophils # (Auto) 8.6H, Neutrophils (%) (Auto) 82H 05/23/16 12:03: 05/24/16 04:20: Calcium Level 8.1L, Chloride Level 108H, Glucose Level 158H, Red Blood Count 4.20L, Total Protein 5.6L Other Pending Tests EGD and colonoscopy biopsy Procedures EGD, Colonoscopy Consultations Dr. Thompson Discharge Physical Examination Allergies: Coded Allergies: ciprofloxacin (Verified Allergy, Severe, COLITIS, 04/05/15) egg (Verified Allergy, Severe, ANAPHYLAXIS, 05/23/16) perfume (Verified Allergy, Severe, ANAPHYLAXIS, 05/23/16) Tetracyclines (Verified Allergy, Mild, RASH, 04/05/15) acetaminophen (Verified Allergy, Mild, COLITIS, 04/05/15) amoxicillin (Verified Allergy, Mild, COLITIS, 04/05/15) aspirin (Verified Allergy, Mild, COLITIS, 04/05/15) codeine (Verified Allergy, Mild, COLITIS, 04/05/15) naproxen sodium (Verified Allergy, Mild, COLITIS, 04/05/15) indapamide (Verified Allergy, Unknown, 04/05/15) ranitidine HCl (Verified Allergy, Unknown, RASH, 04/05/15) Uncoded Allergies: seasonal (Allergy, Severe, ANAPHYLAXIS, 05/23/16) smoke (Allergy, Severe, ANAPHYLAXIS, 05/23/16) Vitals & I&Os Vital Signs Date Time Temp Pulse Resp B/P Pulse Ox O2 Delivery O2 Flow Rate FiO2 05/25/16 08:19 98.5 67 16 147/89 95 Room Air General Appearance: Alert, Oriented X3 HEENT: Atraumatic, PERRLA Respiratory: Clear to Auscultation Cardiovascular: Regular Rate, Normal S1, Normal S2 Abdominal: Normal Bowel Sounds, Soft, Other (mild tenderness) Extremities: No Clubbing, No Cyanosis, Other (arms swollen, trace edema) Skin: No Rashes, No Breakdown Neuro: Normal Speech, Strength at 5/5 X4 Ext Psych/Mental Status: Mental Status NL, Mood NL Discharge Home Medications Reviewed and agree with Discharge Medication list on patient's Discharge Instruction sheet Condition at Discharge Stable, improved Instructions to Patient/Family Please see electronic discharge instructions given to patient. Clinical Quality Measures DVT/VTE Risk/Contraindication: Risk Factor Score Per Nursin RFS Level Per Nursing on Admit: 4+=Very High Contraindications-Pharm: Other *list below* Other: PT HAS BLOODY DIARRHEA - LOVENOX CONTRAINDICATED SHAYNE JARAMILLO MD May 25, 2016 08:39
[2016-05-25] MEDS ORDERED: PRD10T PO (08:48)
[2016-05-25] MEDS ORDERED: METR500T21 PO (08:48)
--- NOTE | 2016-05-25 08:54 | Discharge Inst-Simple/Standard ---
Discharge Inst-Standard Patient Instructions/Follow Up Plan of Care/Instructions/FU: ADAT follow up with Dr. Thompson in 2 months for repeat colonoscopy and EGD. Follow up appt at [facility] May. Stay hydrated Activity as Tolerated: Yes Discharge Diet: Eat Small Frequent Meals Return to The Hospital For: hematochezia fever worsening abdominal pain. SHAYNE JARAMILLO MD May 25, 2016 08:54
--- NOTE | 2016-05-26 08:55 | PROCEDURE REPORT ---
PROCEDURE PHYSICIAN: LEOPOLDO JOHNSTON DATE OF PROCEDURE: 05/24/2016 PROCEDURES: 1. Upper GI endoscopy with antral biopsy. Gastric polypectomy. 2. Colonoscopy with biopsy. SURGEON: Dr. Johnston. INDICATION FOR THE PROCEDURE: This lady has been admitted with nausea and vomiting, along with hematochezia. She has a history of long-term ulcerative colitis, being maintained on sulfasalazine. Previous biopsies in 2012 were negative for any dysplasia. She was offered upper endoscopy regarding nausea and vomiting and colonoscopy to investigate hematochezia. Informed consent was obtained after reviewing the procedures in detail. DESCRIPTION OF PROCEDURE: 1. UPPER GI ENDOSCOPY/GASTRIC POLYPECTOMY: She was placed in left lateral decubitus position and her vital signs were monitored. Conscious sedation was achieved using Versed and fentanyl. The flexible gastroscope was introduced down the esophagus, past the stomach, into the proximal duodenum. FINDINGS: ESOPHAGUS: Quite tortuous without any inflammation. STOMACH: 1. Multiple, 1 mm polyps were found along the body. A few of them were excised with our biopsy forceps. 2. Mild distal gastritis. 3. Biopsy was obtained for Helicobacter status. DUODENUM: Normal. She tolerated the procedure well and was turned around in preparation for colonoscopy. IMPRESSION: 1. Nausea and vomiting. 2. Incidental gastric polyps. 3. Distal gastritis. 4. Helicobacter status pending. 2. COLONOSCOPY/BIOPSY: Digital rectal examination was unremarkable. The colonoscope was then introduced into the rectum and advanced all the way up to the cecum. The quality of bowel preparation was excellent. The scope was then withdrawn slowly and the mucosa examined in a systematic fashion. FINDINGS: 1. Internal hemorrhoids. 2. A few, nonbleeding diverticula. 3. Inflammation and ulceration of the mucosa extending from the proximal sigmoid colon to the splenic flexure, concerning for ischemic colitis. Photodocumentation and biopsies were obtained. 4. The rest of the colon was normal. She tolerated the procedures well and was taken back to the nursing area in a stable condition. IMPRESSION: 1. Bloody diarrhea. 2. Possible ischemic colitis. 3. We will treat conservatively. 4. Biopsies pending. Job ID: [id number] Dictated Date: 05/24/2016 13:07:44 Manager Professional Development Date: 05/26/2016 08:48:53 / maya TITUS
--- OUTSIDE RECORDS SUMMARY | 2016-05-27 13:40 | XMS REPORT | Continuity of Care Document ---
Author Author [facility] Organization [facility] Address Unknown Phone Unavailable Allergies Active Description Code Type Severity Reaction Onset Reported/Identified Relationship to Patient Clinical Status Yes ciprofloxacin [id number] Drug Allergy Mild COLITIS 09/16/2012 Yes ciprofloxacin HCl [id number] Drug Allergy Mild COLITIS 09/16/2012 Yes ciprofloxacin [id number] Drug Allergy Severe COLITIS 04/05/2015 Yes acetaminophen [id number] Drug Allergy Mild COLITIS 04/05/2015 Yes amoxicillin [id number] Drug Allergy Mild COLITIS 04/05/2015 Yes aspirin [id number] Drug Allergy Mild COLITIS 04/05/2015 Yes codeine [id number] Drug Allergy Mild COLITIS 04/05/2015 Yes naproxen sodium [id number] Drug Allergy Mild COLITIS 04/05/2015 Yes Tetracyclines [id number] Drug Allergy Mild RASH 04/05/2015 Yes indapamide [id number] Drug Allergy Unknown N/A 04/05/2015 Yes ranitidine HCl [id number] Drug Allergy Unknown COLITIS 04/05/2015 Yes ranitidine HCl [id number] Drug Allergy Unknown RASH 04/05/2015 Yes Tetracyclines [id number] Drug Allergy Unknown N/A 04/05/2015 Yes egg [id number] Drug Allergy Severe ANAPHYLAXIS 05/23/2016 Yes perfume [id number] Drug Allergy Severe ANAPHYLAXIS 05/23/2016 Yes seasonal seasonal Severe ANAPHYLAXIS 05/23/2016 Yes smoke smoke Severe ANAPHYLAXIS 05/23/2016 Medications Problems Date Dx Coded Attending Type Code Diagnosis Diagnosed By 03/18/1050 ARMANI VILLALTA APRN Ot M54.5 LOW BACK PAIN 03/28/2010 Ot 724.00 07/01/2010 Ot 401.9 07/01/2010 Ot 724.02 07/01/2010 Ot V57.1 08/28/2010 Ot 401.9 08/28/2010 Ot 724.02 08/28/2010 Ot V57.1 10/02/2010 Ot 812.03 10/02/2010 Ot 959.2 10/02/2010 Ot E000.8 10/02/2010 Ot E849.0 10/02/2010 Ot E885.9 02/04/2011 Ot V54.11 AFTERCARE HEALING TRAUMATIC FX UPPER ARM 02/04/2011 Ot V57.1 PHYSICAL THERAPY NEC 04/02/2011 Ot V54.11 AFTERCARE HEALING TRAUMATIC FX UPPER ARM 04/02/2011 Ot V57.1 PHYSICAL THERAPY NEC 09/16/2012 TORRI MEDINA MD Ot 556.9 ULCERATIVE COLITIS, UNSPECIFIED 09/16/2012 TORRI MEDINA MD Ot V76.51 SCREEN MAL NEOP-COLON 06/30/2013 DENICE EASLEY, SHANE Guillen Ot 724.4 LUMBOSACRAL NEURITIS NOS 06/30/2013 SHANE GALDAMEZ MD Ot V57.1 PHYSICAL THERAPY NEC 09/14/2013 ZAY MENG SPEECH THERAPIST TECHNICIAN Ot 780.79 OTH MALAISE FATIGUE 09/14/2013 ZAY MENG SPEECH THERAPIST TECHNICIAN Ot 916.4 INSECT BITE HIP LEG 09/14/2013 ZAY MENG SPEECH THERAPIST TECHNICIAN Ot E906.4 NONVENOM ARTHROPOD BITE 04/10/2015 JANETTE CRUZ MD Ot E78.0 PURE HYPERCHOLESTEROLEMIA 04/10/2015 JANETTE CRUZ MD Ot E87.6 HYPOKALEMIA 04/10/2015 JANETTE CRUZ MD Ot E89.0 POSTPROCEDURAL HYPOTHYROIDISM 04/10/2015 JANETTE CRUZ MD Ot G47.30 SLEEP APNEA, UNSPECIFIED 04/10/2015 JANETTE CRUZ MD Ot I10 ESSENTIAL (PRIMARY) HYPERTENSION 04/10/2015 JANETTE CRUZ MD Ot K21.9 GASTRO-ESOPHAGEAL REFLUX DISEASE WITHOUT 04/10/2015 JANETTE CRUZ MD Ot K51.211 ULCERATIVE (CHRONIC) PROCTITIS WITH RECT 04/10/2015 JANETTE CRUZ MD Ot K51.911 ULCERATIVE COLITIS, UNSPECIFIED WITH REC 04/10/2015 JANETTE CRUZ MD Ot M48.00 SPINAL STENOSIS, SITE UNSPECIFIED 07/11/2015 Ot 780.59 07/11/2015 Ot 733.00 07/11/2015 Ot 786.07 07/11/2015 Ot 786.7 07/11/2015 TORRI MEDINA MD Ot V72.84 07/12/2015 TOBY MULLINS MD A Ot R10.11 07/12/2015 TOBY MULLINS MD A Ot R19.7 07/31/2015 TOBY MULLINS MD A Ot R10.11 07/31/2015 TOBY MULLINS MD A Ot R19.7 08/07/2015 TOBY MULLINS MD A Ot R10.11 RIGHT UPPER QUADRANT PAIN 08/07/2015 TOBY MULLINS MD A Ot R19.7 DIARRHEA, UNSPECIFIED 11/20/2015 NANCY EASLEY, JANETTE A Ot M54.6 PAIN IN THORACIC SPINE 11/21/2015 NANCY EASLEY, JANETTE A Ot M54.6 PAIN IN THORACIC SPINE 11/25/2015 NANCY EASLEY, JANETTE A Ot M54.6 PAIN IN THORACIC SPINE 12/10/2015 NANCY EASLEY, JANETTE A Ot M54.6 PAIN IN THORACIC SPINE 12/16/2015 ARMANI VILLALTA APRN Ot M54.5 LOW BACK PAIN 12/19/2015 NANCY EASLEY, JANETTE A Ot M54.6 PAIN IN THORACIC SPINE 05/23/2016 ADAM EASLEY, TORRI Plata Ot V72.84 EXAM PRE-OPERATIVE NOS 05/23/2016 TOBY MULLINS MD A Ot R10.11 RIGHT UPPER QUADRANT PAIN 05/23/2016 TOBY MULLINS MD A Ot R19.7 DIARRHEA, UNSPECIFIED 05/23/2016 NANCY EASLEY, JANETTE A Ot M54.6 PAIN IN THORACIC SPINE 05/23/2016 OTRRI MEDINA MD Ot V72.84 EXAM PRE-OPERATIVE NOS 05/23/2016 TOBY MULLINS MD A Ot R10.11 RIGHT UPPER QUADRANT PAIN 05/23/2016 TOBY MULLINS MD A Ot R19.7 DIARRHEA, UNSPECIFIED 05/23/2016 NANCY EASLEY, JANETTE A Ot M54.6 PAIN IN THORACIC SPINE Procedures Results Test Result Range Complete blood count (CBC) with automated white blood cell (WBC) differential - 05/22/16 21:38 Blood leukocytes automated count (number/volume) 11.1 10*3/ uL 4.3-11.0 Blood erythrocytes automated count (number/volume) 4.65 10*6 /uL 4.35-5.85 Venous blood hemoglobin measurement (mass/volume) 13.7 g/dL 11.5-16.0 Blood hematocrit (volume fraction) 42 % 35-52 Automated erythrocyte mean corpuscular volume 91 [foz_us] 80-99 Automated erythrocyte mean corpuscular hemoglobin (mass per erythrocyte) 30 pg 25-34 Automated erythrocyte mean corpuscular hemoglobin concentration measurement ( mass/volume) 33 g/dL 32-36 Automated erythrocyte distribution width ratio 12.8 % 10.0-14.5 Automated blood platelet count (count/volume) 231 10*3/uL 130-400 Automated blood platelet mean volume measurement 9.4 [foz_us ] 7.4-10.4 Automated blood neutrophils/100 leukocytes 56 % 42-75 Automated blood lymphocytes/100 leukocytes 37 % 12-44 Blood monocytes/100 leukocytes 5 % 0-12 Automated blood eosinophils/100 leukocytes 1 % 0-10 Automated blood basophils/100 leukocytes 0 % 0-10 Blood neutrophils automated count (number/volume) 6.2 10*3 1.8-7.8 Blood lymphocytes automated count (number/volume) 4.1 10*3 1.0-4.0 Blood monocytes automated count (number/volume) 0.6 10*3 0.0-1.0 Automated eosinophil count 0.2 10*3/uL 0.0-0.3 Automated blood basophil count (count/volume) 0.0 10*3/uL 0.0-0.1 Comprehensive metabolic panel - 05/22/16 21:38 Serum or plasma sodium measurement (moles/volume) 140 mmol/ L 135-145 Serum or plasma potassium measurement (moles/volume) 3.5 mmol/L 3.6-5.0 Serum or plasma chloride measurement (moles/volume) 102 mmol /L 98-107 Carbon dioxide 26 mmol/L 21-32 Serum or plasma anion gap determination (moles/volume) 12 mmol/L 5-14 Serum or plasma urea nitrogen measurement (mass/volume) 16 mg/dL 7-18 Serum or plasma creatinine measurement (mass/volume) 0.86 mg /dL 0.60-1.30 Serum or plasma urea nitrogen/creatinine mass ratio 19 NRG Serum or plasma creatinine measurement with calculation of estimated glomerular filtration rate > NRG Serum or plasma glucose measurement (mass/volume) 163 mg/dL 70-105 Serum or plasma calcium measurement (mass/volume) 9.2 mg/dL 8.5-10.1 Serum or plasma total bilirubin measurement (mass/volume) 0.8 mg/dL 0.1-1.0 Serum or plasma alkaline phosphatase measurement (enzymatic activity/volume) 67 U/L 40-136 Serum or plasma aspartate aminotransferase measurement (enzymatic activity/ volume) 23 U/L 5-34 Serum or plasma alanine aminotransferase measurement (enzymatic activity/volume ) 17 U/L 0-55 Serum or plasma protein measurement (mass/volume) 6.5 g/dL 6.4-8.2 Serum or plasma albumin measurement (mass/volume) 4.0 g/dL 3.2-4.5 Serum or plasma troponin i.cardiac measurement (mass/volume) - 05/22/16 21:38 Serum or plasma troponin i.cardiac measurement (mass/volume) < ng/mL <0.30 Serum or plasma lithium measurement (moles/volume) - 05/22/16 21:38 BNP level < pg/mL <100.0 Lipase - 05/22/16 21:38 Lipase 28 U/L 8-78 Complete urinalysis with reflex to culture - 05/22/16 22:40 Urine color determination YELLOW NRG Urine clarity determination CLEAR NRG Urine pH measurement by test strip 6 5- 9 Specific gravity of urine by test strip 1.010 1.016-1.022 Urine protein assay by test strip, semi-quantitative NEGATIVE NEGATIVE Urine glucose detection by automated test strip NEGATIVE NEGATIVE Erythrocytes detection in urine sediment by light microscopy 1+ NEGATIVE Urine ketones detection by automated test strip NEGATIVE NEGATIVE Urine nitrite detection by test strip NEGATIVE NEGATIVE Urine total bilirubin detection by test strip NEGATIVE NEGATIVE Urine urobilinogen measurement by automated test strip (mass/volume) NORMAL NORMAL Urine leukocyte esterase detection by dipstick 1+ NEGATIVE Automated urine sediment erythrocyte count by microscopy (number/high power field) [HPF] NRG Automated urine sediment leukocyte count by microscopy (number/high power field ) [HPF] NRG Bacteria detection in urine sediment by light microscopy TRACE NRG Squamous epithelial cells detection in urine sediment by light microscopy 0-2 NRG Crystals detection in urine sediment by light microscopy NONE NRG Casts detection in urine sediment by light microscopy NONE NRG Mucus detection in urine sediment by light microscopy NEGATIVE NRG Complete urinalysis with reflex to culture NO NRG C DIFFICILE AG + TOXIN A/B. - 05/23/16 01:00 RESULTS NEGATIVE FOR ANTIGEN AND TOXIN A/B NRG Stool occult blood screen - 05/23/16 01:00 Stool gastrointestinal hemoglobin detection POSITIVE NEGATIVE Stool bacteria identification by culture - 05/23/16 01:00 Stool bacteria identification by culture N2 [facility] Complete blood count (CBC) with automated white blood cell (WBC) differential - 05/23/16 05:20 Blood leukocytes automated count (number/volume) 10.5 10*3/ uL 4.3-11.0 Blood erythrocytes automated count (number/volume) 4.56 10*6 /uL 4.35-5.85 Venous blood hemoglobin measurement (mass/volume) 13.4 g/dL 11.5-16.0 Blood hematocrit (volume fraction) 41 % 35-52 Automated erythrocyte mean corpuscular volume 90 [foz_us] 80-99 Automated erythrocyte mean corpuscular hemoglobin (mass per erythrocyte) 29 pg 25-34 Automated erythrocyte mean corpuscular hemoglobin concentration measurement ( mass/volume) 33 g/dL 32-36 Automated erythrocyte distribution width ratio 12.8 % 10.0-14.5 Automated blood platelet count (count/volume) 205 10*3/uL 130-400 Automated blood platelet mean volume measurement 9.9 [foz_us ] 7.4-10.4 Automated blood neutrophils/100 leukocytes 82 % 42-75 Automated blood lymphocytes/100 leukocytes 13 % 12-44 Blood monocytes/100 leukocytes 5 % 0-12 Automated blood eosinophils/100 leukocytes 0 % 0-10 Automated blood basophils/100 leukocytes 0 % 0-10 Blood neutrophils automated count (number/volume) 8.6 10*3 1.8-7.8 Blood lymphocytes automated count (number/volume) 1.4 10*3 1.0-4.0 Blood monocytes automated count (number/volume) 0.5 10*3 0.0-1.0 Automated eosinophil count 0.0 10*3/uL 0.0-0.3 Automated blood basophil count (count/volume) 0.0 10*3/uL 0.0-0.1 Comprehensive metabolic panel - 05/23/16 05:20 Serum or plasma sodium measurement (moles/volume) 139 mmol/ L 135-145 Serum or plasma potassium measurement (moles/volume) 3.7 mmol/L 3.6-5.0 Serum or plasma chloride measurement (moles/volume) 103 mmol /L 98-107 Carbon dioxide 24 mmol/L 21-32 Serum or plasma anion gap determination (moles/volume) 12 mmol/L 5-14 Serum or plasma urea nitrogen measurement (mass/volume) 14 mg/dL 7-18 Serum or plasma creatinine measurement (mass/volume) 0.79 mg /dL 0.60-1.30 Serum or plasma urea nitrogen/creatinine mass ratio 18 NRG Serum or plasma creatinine measurement with calculation of estimated glomerular filtration rate > NRG Serum or plasma glucose measurement (mass/volume) 115 mg/dL 70-105 Serum or plasma calcium measurement (mass/volume) 8.9 mg/dL 8.5-10.1 Serum or plasma total bilirubin measurement (mass/volume) 0.7 mg/dL 0.1-1.0 Serum or plasma alkaline phosphatase measurement (enzymatic activity/volume) 67 U/L 40-136 Serum or plasma aspartate aminotransferase measurement (enzymatic activity/ volume) 23 U/L 5-34 Serum or plasma alanine aminotransferase measurement (enzymatic activity/volume ) 17 U/L 0-55 Serum or plasma protein measurement (mass/volume) 6.4 g/dL 6.4-8.2 Serum or plasma albumin measurement (mass/volume) 4.0 g/dL 3.2-4.5 Whole blood hemoglobin and hematocrit panel - 05/23/16 12:03 Venous blood hemoglobin measurement (mass/volume) 13.0 g/dL 11.5-16.0 Blood hematocrit (volume fraction) 40 % 35-52 Automated blood complete blood count (hemogram) panel - 05/24/16 04:20 Blood leukocytes automated count (number/volume) 7.8 10*3/ uL 4.3-11.0 Blood erythrocytes automated count (number/volume) 4.20 10*6 /uL 4.35-5.85 Venous blood hemoglobin measurement (mass/volume) 12.5 g/dL 11.5-16.0 Blood hematocrit (volume fraction) 38 % 35-52 Automated erythrocyte mean corpuscular volume 90 [foz_us] 80-99 Automated erythrocyte mean corpuscular hemoglobin (mass per erythrocyte) 30 pg 25-34 Automated erythrocyte mean corpuscular hemoglobin concentration measurement ( mass/volume) 33 g/dL 32-36 Automated erythrocyte distribution width ratio 12.7 % 10.0-14.5 Automated blood platelet count (count/volume) 181 10*3/uL 130-400 Automated blood platelet mean volume measurement 9.7 [foz_us ] 7.4-10.4 Comprehensive metabolic panel - 05/24/16 04:20 Serum or plasma sodium measurement (moles/volume) 138 mmol/ L 135-145 Serum or plasma potassium measurement (moles/volume) 3.7 mmol/L 3.6-5.0 Serum or plasma chloride measurement (moles/volume) 108 mmol /L 98-107 Carbon dioxide 21 mmol/L 21-32 Serum or plasma anion gap determination (moles/volume) 9 mmol/L 5-14 Serum or plasma urea nitrogen measurement (mass/volume) 11 mg/dL 7-18 Serum or plasma creatinine measurement (mass/volume) 0.71 mg /dL 0.60-1.30 Serum or plasma urea nitrogen/creatinine mass ratio 15 NRG Serum or plasma creatinine measurement with calculation of estimated glomerular filtration rate > NRG Serum or plasma glucose measurement (mass/volume) 158 mg/dL 70-105 Serum or plasma calcium measurement (mass/volume) 8.1 mg/dL 8.5-10.1 Serum or plasma total bilirubin measurement (mass/volume) 0.9 mg/dL 0.1-1.0 Serum or plasma alkaline phosphatase measurement (enzymatic activity/volume) 53 U/L 40-136 Serum or plasma aspartate aminotransferase measurement (enzymatic activity/ volume) 25 U/L 5-34 Serum or plasma alanine aminotransferase measurement (enzymatic activity/volume ) 17 U/L 0-55 Serum or plasma protein measurement (mass/volume) 5.6 g/dL 6.4-8.2 Serum or plasma albumin measurement (mass/volume) 3.5 g/dL 3.2-4.5 Encounters ACCT No. Visit Date/Time Discharge Status Pt. Type Provider Facility Loc./Unit Complaint [id number] 05/23/2016 00:00:00 2016 11:27:00 DIS Inpatient ELLA EASLEY, SHAYNE Patton [facility] 4TH COLITIS,N/V/D [id number] 04/05/2015 08:50:00 2014 10:55:00 DIS Inpatient JANETTE CRUZ MD [facility] 4TH GI BLEED;ULCERATIVE COLITIS [id number] 09/14/2013 22:00:00 2013 23:05:00 DIS Emergency ZAY MENG SPEECH THERAPIST TECHNICIAN [facility] ER INSECT BITE/STING [id number] 06/22/2013 08:05:00 2013 13:26:00 DIS Outpatient DENICE EASLEY, SHANE Guillen [facility] REHAB BACK PAIN WITH RADICULOPATHY [id number] 09/16/2012 07:39:00 2012 13:30:00 DIS Outpatient TORRI MEDINA MD [facility] SDC SCREENING; ULCERTIVE COLITIS [id number] 09/15/2012 12:10:00 2012 23:59:59 CLS Outpatient TORRI MEDINA MD [facility] PREOP SCREENING; ULCERTIVE COLITIS [id number] 12/13/2015 08:46:00 ACT Outpatient ARMANI VILLALTA SPEECH THERAPIST TECHNICIAN [facility] REHAB BACK PAIN [id number] 11/19/2015 14:45:00 ACT Outpatient JANETTE CRUZ MD [facility] RAD PAIN IN THORACIC SPINE [id number] 07/11/2015 08:49:00 ACT Outpatient SUSANNA EASLEY, TOBY Lorenzo [facility] RAD RUQ PAIN,DIARRHEA [id number] 04/05/2015 06:31:00 Document Registration [id number] 04/02/2011 08:46:00 Document Registration [id number] 02/03/2011 10:47:00 Document Registration [id number] 10/02/2010 07:44:00 Document Registration [id number] 08/28/2010 07:52:00 Document Registration [id number] 06/27/2010 08:48:00 Document Registration [id number] 05/08/2010 10:11:00 Document Registration [id number] 04/09/2010 10:22:00 Document Registration [id number] 03/28/2010 07:40:00 Document Registration [id number] 02/27/2010 19:24:00 Document Registration
== END 2016-05-25 08:43 | disposition home or self-care (01) ==
LOC: EDUNIT# 21:39 → ER 21:40 → SDC 21:41 → 4TH 21:41 → UNDOADMOB 05-23 → 4TH 05-23 → SDC 05-25 08:43 → UNDODISOB 05-25 11:27
PROVIDERS: ATTEND Family Medicine
DX: K51.911 Ulcerative colitis, unspecified with rectal bleeding (principal); K57.30 Diverticulosis of large intestine without perforation or abscess without bleeding; K21.9 Gastro-esophageal reflux disease without esophagitis; K29.70 Gastritis, unspecified, without bleeding; K31.7 Polyp of stomach and duodenum; K64.8 Other hemorrhoids; I10 Essential (primary) hypertension; E03.9 Hypothyroidism, unspecified; Z79.52 Long term (current) use of systemic steroids; Z79.899 Other long term (current) drug therapy
CPT/HCPCS: 36415; 71020; 74176; 80053; 81000; 82274; 83690; 83880; 84484; 85014; 85018; 85025; 85027; 87045; 87046; 87177; 87324; 87449; 88305; 96365; 96375; G0378

== ENCOUNTER → 2016-08-06 | Outpatient (CLI) | payer MEDICARE ==
[~2016-08-06] MED LIST changes: +METR500T21 PO; +POTA10TA10 PO; +PRD10T PO
--- NOTE | 2016-08-06 13:21 | Diagnostic Imaging Report ---
Three views of the lumbar spine. INDICATION: Low back pain. FINDINGS: There is a grade 1 spondylolisthesis of L4 over L5. The vertebral body heights are preserved. Disc heights are also preserved. There are mild anterior osteophytes at the upper lumbar spine levels. No posterior osteophyte is noted. Sclerotic changes in the lower lumbar spine facet joints seen. Mild sclerotic degenerative change at the SI joints is noted. IMPRESSION: Grade 1 spondylolisthesis of L4 over L5. Degenerative disc and facet changes. Dictated by: Dictated on workstation # [id number]
== END ==
LOC: RAD 09:36
PROVIDERS: ATTEND Family Medicine
DX: M54.5 Low back pain (principal)
CPT/HCPCS: 72100

== ENCOUNTER 2016-09-17 07:56 | Emergency (ER) | payer MEDICARE ==
[~2016-09-17] VITALS: Ht 154.9 cm; Wt 88.5 kg
[2016-09-17 08:46] LABS: BASOPHILS % (AUTO) 0 % (0-10); EOSINOPHILS % (AUTO) 0 % (0-10); LYMPHOCYTES # (AUTO) 1.1 X 10^3 (1.0-4.0); LYMPHOCYTES % (AUTO) 7 % (12-44); MEAN CORPUSCULAR HEMOGLOBIN 28 PG (25-34); MEAN CORPUSCULAR HGB CONC 33 G/DL (32-36); MEAN CORPUSCULAR VOLUME 84 FL (80-99); MEAN PLATELET VOLUME 9.6 FL (7.4-10.4); MONOCYTES # (AUTO) 0.9 X 10^3 (0.0-1.0); MONOCYTES % (AUTO) 6 % (0-12); NEUTROPHILS # (AUTO) 14.3 X 10^3 (1.8-7.8); NEUTROPHILS % (AUTO) 88 % (42-75); PLATELET COUNT 216 10^3/uL (130-400); RED BLOOD COUNT 4.75 10^6/uL (4.35-5.85); WHITE BLOOD COUNT 16.3 10^3/uL (4.3-11.0)
[2016-09-17] MEDS ORDERED: LISI-552 PO (08:47)
[2016-09-17 08:59] LABS: BILIRUBIN,URINE NEGATIVE (NEGATIVE); KETONES,URINE NEGATIVE (NEGATIVE); LEUKOCYTE ESTERASE ,URINE 2+ (NEGATIVE); NITRITE,URINE NEGATIVE (NEGATIVE); PH,URINE 6 (5-9); PROTEIN,URINE 1+ (NEGATIVE); UROBILINOGEN,URINE NORMAL (NORMAL)
[2016-09-17 09:02] LABS: ALANINE AMINOTRANSFERASE 18 U/L (0-55); ALBUMIN 4.1 G/DL (3.2-4.5); ANION GAP 12 MMOL/L (5-14); ASPARTATE AMINO TRANSFERASE 25 U/L (5-34); BILIRUBIN,TOTAL 1.3 MG/DL (0.1-1.0); BLOOD UREA NITROGEN 15 MG/DL (7-18); BUN/CREATININE RATIO 18; CALCIUM 9.3 MG/DL (8.5-10.1); CARBON DIOXIDE 26 MMOL/L (21-32); CHLORIDE 98 MMOL/L (98-107); CREATININE SERUM 0.82 MG/DL (0.60-1.30); GFR ESTIMATED > 60; GLUCOSE 127 MG/DL (70-105); POTASSIUM 3.5 MMOL/L (3.6-5.0); SODIUM 136 MMOL/L (135-145); TOTAL PROTEIN 6.9 G/DL (6.4-8.2)
[2016-09-17 09:21] LABS: SQUAMOUS EPITHELIAL CELL,UR 0-2 /HPF
[2016-09-17 09:25] LABS: BAND NEUTROPHILS 4 %; BASOPHILS % (MANUAL) 0 %; EOSINOPHILS % (MANUAL) 0 %; LYMPHOCYTES % (MANUAL) 8 %; NEUTROPHILS % (MANUAL) 84 %
--- NOTE | 2016-09-17 10:40 | ED GI ---
General Chief Complaint: Abdominal/GI Problems Stated Complaint: POSS COLITIS ATTACK Nursing Triage Note: pt reports n/v/ bloody diarrhea starting at approx 0130, chills, and abd pain 5/10. pt has history of colitis Sepsis Screen: No Definite Risk Source of Information: Patient Exam Limitations: No Limitations History of Present Illness Time Seen By Provider: 10:15 Initial Comments The patient is a very pleasant 71-year-old white female who presents to the emergency room today with the complaint of abdominal pain and blood in her stool. She has had a recent admission for the same problem. She states that this began at about 01 30 this morning. There is a past history of inflammatory bowel disease. 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 This caused her to undergo a prolonged treatment program for 3 strains and during her recovery she developed inflammatory bowel symptoms. She has had multiple episodes of this since then. There have been periods of long remission. Timing/Duration: 4-6 Hours Severity/Quality: Mild, Moderate Location: LUQ, LLQ Activities at Onset: None Associated Symptoms: Denies Symptoms Allergies and Home Medications Allergies Coded Allergies: ciprofloxacin (Verified Allergy, Severe, COLITIS, 04/05/15) egg (Verified Allergy, Severe, ANAPHYLAXIS, 05/23/16) perfume (Verified Allergy, Severe, ANAPHYLAXIS, 05/23/16) Tetracyclines (Verified Allergy, Mild, RASH, 04/05/15) acetaminophen (Verified Allergy, Mild, COLITIS, 04/05/15) amoxicillin (Verified Allergy, Mild, COLITIS, 04/05/15) aspirin (Verified Allergy, Mild, COLITIS, 04/05/15) codeine (Verified Allergy, Mild, COLITIS, 04/05/15) naproxen sodium (Verified Allergy, Mild, COLITIS, 04/05/15) indapamide (Verified Allergy, Unknown, 04/05/15) ranitidine HCl (Verified Allergy, Unknown, RASH, 04/05/15) Uncoded Allergies: seasonal (Allergy, Severe, ANAPHYLAXIS, 05/23/16) smoke (Allergy, Severe, ANAPHYLAXIS, 05/23/16) Home Medications Ca Carb & Gluc/Mag Ox & Gluc 1 Each Tablet, 1 TAB PO DAILY, (Reported) Cetirizine HCl 10 Mg Tablet, 10 MG PO DAILY, (Reported) Cholecalciferol (Vitamin D3) 1,000 Unit Capsule, 2,000 UNIT PO DAILY, (Reported) Hydrochlorothiazide 25 Mg Tablet, 25 MG PO DAILY, (Reported) Levothyroxine Sodium 100 Mcg Tablet, 100 MCG PO DAILY, (Reported) Lisinopril 20 Mg Tablet, 20 MG PO DAILY, #30 (Reported) Metronidazole 500 Mg Tablet, 500 MG PO Q8H, #30 Ref 0 Prescribed by: SHAYNE JARAMILLO on 05/25/16 0848 Pantoprazole Sodium 40 Mg Tablet.dr, 40 MG PO DAILY, #30 Prescribed by: CUBA OWENS on 04/10/15 0736 Potassium Chloride 10 Meq Tablet.er, 10 MEQ PO BID, (Reported) Prednisone 5 Mg Tablet, 10 MG PO BID PRN for DIARRHEA, #60 TAKES 1 TO 2 OF A (5 MG) TABLET NEED FOR URGENT DIARRHEA Prescribed by: CUBA OWENS on 04/10/15 0736 Review of Systems Constitutional: see HPI EENTM: No Symptoms Reported Respiratory: No Symptoms Reported Cardiovascular: No Symptoms Reported Gastrointestinal: See HPI, Abdominal Pain, Rectal Bleeding Genitourinary: No Symptoms Reported Musculoskeletal: no symptoms reported Skin: no symptoms reported Psychiatric/Neurological: No Symptoms Reported Endocrine: No Symptoms Reported Past Ijlhiut-Skqohl-Xqgswz Hx Patient Social History Alcohol Use: Denies Use Recreational Drug Use: No Smoking Status: Never a Smoker 2nd Hand Smoke Exposure: No Recent Foreign Travel: No Contact w/Someone Who Travel: No Recent Infectious Disease Expo: No Recent Hopitalizations: No Immunizations Up To Date Tetanus Booster (TDap): Unknown PED Vaccines UTD: No Date of Pneumonia Vaccine: Apr 19, 2013 Seasonal Allergies Seasonal Allergies: Yes Surgeries HX Surgeries: Yes (LEFT SHOULDER, HYST/BSO/APPY, EGD/COLONOSCOPY, PARTIAL THYROIDECTOMY) Surgeries: Adenoidectomy, Appendectomy, Hysterectomy, Oophorectomy, Orthopedic , Thyroidectomy, Tonsillectomy Respiratory Hx Respiratory Disorders: Yes Respiratory Disorders: Pneumonia, Sleep Apnea Cardiovascular Hx Cardiac Disorders: No Cardiac Disorders: Hypertension Neurological Hx Neurological Disorders: Yes Neurological Disorders: Headaches /Migraines Reproductive System : No Hx Reproductive Disorders: No Sexually Transmitted Disease: No HIV/AIDS: No Female Reproductive Disorders: Polycystic Ovarian Dis [employer] History: Hysterectomy, Menopausal Genitourinary Hx Genitourinary Disorders: Yes Genitourinary Disorders: Bladder Infection Gastrointestinal Hx Gastrointestinal Disorders: Yes (ULCERATIVE COLITIS) Gastrointestinal Disorders: Colitis, Gastroesophageal Reflux, Gastrointestinal Bleed Musculoskeletal Hx Musculoskeletal Disorders: Yes (SPINAL STENOSIS) Musculoskeletal Disorders: Arthritis, Fibromyalgia, Chronic Back Pain Endocrine Hx Endocrine Disorders: Yes (PARTIAL THYROIDECTOMY FOR BENIGN TUMOR) Endocrine Disorders: Hypothyroidsim HEENT HX ENT Disorders: No Loss of Vision: Denies Hearing Impairment: Denies Cancer Hx Cancer: No Psychosocial Hx Psychiatric Problems: No Integumentary HX Skin/Integumentary Disorder: No Blood Transfusions Hx Blood Disorders: No Adverse Reaction to a Blood Tr: No Family Medical History Significant Family History: Heart Disease, Cancer, Hypertension Family Medial History: Arthritis 19 MOTHER Gastroenteritis G8 BROTHER (ulcers) Hypertension 19 MOTHER Neoplasm (lung ca w/mets to brain) 19 FATHER Osteoporosis 19 MOTHER Psychosocial problem 19 MOTHER G8 BROTHER Physical Exam Vital Signs VS - Last 72 Hours, by Label 09/17/16 08:24 Temp 97.9 Pulse 110 Resp 18 B/P (MAP) 144/85 Pulse Ox 98 O2 Delivery Room Air Capillary Refill : Less Than 3 Seconds General Appearance: WD/WN, no apparent distress HEENT: normal ENT inspection Neck: full range of motion Respiratory: chest non-tender, lungs clear, normal breath sounds, no respiratory distress, no accessory muscle use Cardiovascular: normal peripheral pulses, regular rate, rhythm, no edema, no gallop, no JVD, no murmur Gastrointestinal: normal bowel sounds, non tender, soft, no organomegaly, no pulsatile mass Extremities: normal range of motion, non-tender, normal inspection, no pedal edema, no calf tenderness, normal capillary refill, pelvis stable Back: normal inspection 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, no motor/sensory deficits, alert, normal mood/affect, oriented x 3 Skin: normal color, warm/dry Lymphatic: no adenopathy Progress/Results/Core Measures Results/Orders Lab Results Laboratory Tests Test 09/17/16 08:38 09/17/16 08:53 Range/Units White Blood Count 16.3 H 4.3-11.0 10^3/uL Red Blood Count 4.75 4.35-5.85 10^6/uL Hemoglobin 13.4 11.5-16.0 G/DL Hematocrit 40 35-52 % Mean Corpuscular Volume 84 80-99 FL Mean Corpuscular Hemoglobin 28 25-34 PG Mean Corpuscular Hemoglobin Concent 33 32-36 G/DL Red Cell Distribution Width 14.0 10.0-14.5 % Platelet Count 216 130-400 10^3/uL Mean Platelet Volume 9.6 7.4-10.4 FL Neutrophils (%) (Auto) 88 H 42-75 % Lymphocytes (%) (Auto) 7 L 12-44 % Monocytes (%) (Auto) 6 0-12 % Eosinophils (%) (Auto) 0 0-10 % Basophils (%) (Auto) 0 0-10 % Neutrophils # (Auto) 14.3 H 1.8-7.8 X 10^3 Lymphocytes # (Auto) 1.1 1.0-4.0 X 10^3 Monocytes # (Auto) 0.9 0.0-1.0 X 10^3 Eosinophils # (Auto) 0.0 0.0-0.3 10^3/uL Basophils # (Auto) 0.0 0.0-0.1 10^3/uL Neutrophils % (Manual) 84 % Lymphocytes % (Manual) 8 % Monocytes % (Manual) 4 % Eosinophils % (Manual) 0 % Basophils % (Manual) 0 % Band Neutrophils 4 % Blood Morphology Comment NORMAL Sodium Level 136 135-145 MMOL/L Potassium Level 3.5 L 3.6-5.0 MMOL/L Chloride Level 98 98-107 MMOL/L Carbon Dioxide Level 26 21-32 MMOL/L Anion Gap 12 5-14 MMOL/L Blood Urea Nitrogen 15 7-18 MG/DL Creatinine 0.82 0.60-1.30 MG/DL Estimat Glomerular Filtration Rate > 60 BUN/Creatinine Ratio 18 Glucose Level 127 H 70-105 MG/DL Calcium Level 9.3 8.5-10.1 MG/DL Total Bilirubin 1.3 H 0.1-1.0 MG/DL Aspartate Amino Transf (AST/SGOT) 25 5-34 U/L Alanine Aminotransferase (ALT/SGPT) 18 0-55 U/L Alkaline Phosphatase 58 40-136 U/L Total Protein 6.9 6.4-8.2 G/DL Albumin 4.1 3.2-4.5 G/DL Urine Color YELLOW Urine Clarity CLEAR Urine pH 6 5-9 Urine Specific [place] 1.020 1.016-1.022 Urine Protein 1+ H NEGATIVE Urine Glucose (UA) NEGATIVE NEGATIVE Urine Ketones NEGATIVE NEGATIVE Urine Nitrite NEGATIVE NEGATIVE Urine Bilirubin NEGATIVE NEGATIVE Urine Urobilinogen NORMAL NORMAL MG/DL Urine Leukocyte Esterase 2+ H NEGATIVE Urine RBC (Auto) 3+ H NEGATIVE Urine RBC 0-2 /HPF Urine WBC 5-10 H /HPF Urine Squamous Epithelial Cells 0-2 /HPF Urine Crystals NONE /LPF Urine Bacteria FEW H /HPF Urine Casts NONE /LPF Urine Mucus NEGATIVE /LPF Urine Culture Indicated YES My Orders Orders - KALI GONZALEZ MD Cbc With Automated Diff (09/17/16 08:39) Comprehensive Metabolic Panel (09/17/16 08:39) Ua Culture If Indicated (09/17/16 08:39) Manual Differential (09/17/16 08:38) Urine Culture (09/17/16 08:53) Ct Abdomen/Pelvis Wo (09/17/16 10:54) Vital Signs/I&O Vital Sign - Last 12Hours 09/17/16 08:24 Temp 97.9 Pulse 110 Resp 18 B/P (MAP) 144/85 Pulse Ox 98 O2 Delivery Room Air Blood Pressure Mean: 104 Departure Communication Progress Notes 1240 CT scan report is available and suggested no inflammatory process. [address] Thompson. The plan will be to place her on Flagyl and he has arranged a repeat colonoscopy for next week. Impression Impression: Primary Impression: hematochezia Additional Impression: history of ischemic colitis Disposition: HOME, SELF-CARE Condition: Stable/Unchanged Departure-Patient Inst. Decision time for Depature: 13:01 Referrals: SHAYNE JARAMILLO MD (PCP/Family) Primary Care Physician Add. Discharge Instructions: All discharge instructions reviewed with patient and/or family. Voiced understanding. Take Flagyl as directed. If bleeding becomes copious return to the emergency room. Take a low bulk bland diet. Dr. Thompson has arranged a colonoscopy for you next week. If you have not heard from him by tomorrow call him for your instructions Scripts Metronidazole (Flagyl) 375 Mg Capsule 375 MG PO 3 TIMES A DAY, #20 CAP Prov: KALI GONZALEZ MD 09/17/16 KALI GONZALEZ MD Sep 17, 2016 10:40
--- NOTE | 2016-09-17 11:58 | Diagnostic Imaging Report ---
PROCEDURE: CT abdomen and pelvis without contrast. TECHNIQUE: Multiple contiguous axial images were obtained through the abdomen and pelvis without the use of intravenous contrast. INDICATION: Abdominal pain. FINDINGS: Lung bases are clear. Liver appears normal. Gallbladder is present. There are no pancreatic masses. Spleen is not enlarged. There is a large hiatal hernia. Kidneys and adrenals are normal. Urinary bladder is normal. Uterus is surgically absent. There is some diverticulosis of the colon but no evidence of diverticulitis. Small bowel is not dilated. There is no intraperitoneal free air or free fluid. There is an umbilical hernia containing fat. IMPRESSION: Hiatal hernia. Uncomplicated diverticulosis of the colon. Small umbilical hernia. Aortic atherosclerosis. No acute abnormality seen. Dictated by: Dictated on workstation # [id number]
[2016-09-17] MEDS ORDERED: METR375C PO (13:03)
[2016-09-17 13:28] VITALS: BP 126/73
== END 2016-09-17 13:24 | disposition home or self-care (01) ==
LOC: EDUNIT# 07:56 → ER 07:58
DX: K92.1 Melena (principal); R19.7 Diarrhea, unspecified; I10 Essential (primary) hypertension; Z79.899 Other long term (current) drug therapy; Z87.19 Personal history of other diseases of the digestive system
CPT/HCPCS: 36415; 74176; 80053; 81000; 85007; 85027; 87088

== ENCOUNTER 2016-10-01 06:16 | Outpatient (CLI) | payer MEDICARE ==
[~2016-10-01] VITALS: Ht 154.9 cm; Wt 88.5 kg
[~2016-10-01 06:16] MED LIST changes: +LISI-552 PO; +METR375C PO
[2016-10-01] MEDS ORDERED: LISI-552 PO (13:43)
== END 2016-10-01 13:47 ==
LOC: PREOP 06:16
PROVIDERS: ATTEND Surgery
DX: Z01.818 Encounter for other preprocedural examination (principal); R19.7 Diarrhea, unspecified

== ENCOUNTER 2016-10-05 08:56 | Day surgery (SDC) | payer MEDICARE ==
[~2016-10-05] VITALS: Ht 154.9 cm; Wt 88.5 kg
[2016-10-05 09:14] VITALS: BP 132/74
[2016-10-05] MEDS ORDERED: NALOXONE 0.4 MG/ML 1 ML (NARCAN) VIAL IVP PRN (09:15)
[2016-10-05] MEDS ORDERED: FLUMAZENIL (ROMAZICON) 0.1 MG/ML 5 ML VIAL INJ PRN (09:15)
[2016-10-05] MEDS ORDERED: NS IV 500 ML 500 ML IV ONE (09:15)
[2016-10-05] MEDS ORDERED: fentaNYL INJECTION 100 MCG/2 ML AMP ONE ×2 (11:06)
[2016-10-05] MEDS ORDERED: MIDAZOLAM 2 MG/2 ML (VERSED) VIAL ONE ×4 (11:06→11:07)
--- NOTE | 2016-10-05 11:14 | Conscious Sedation/ASA ---
Conscious Sedation Pre-Proced Time Reviewed: 10:52 ASA Class: 2 Airway Mallampati Classification: (north fork appropriate class) I. II. III, IV Lungs Heart ASA score ASA 1: a normal healthy patient ASA 2: a patient with a mild systemic disease (mid diabetes, controlled hypertension, obesity ASA 3: a patient with a severe systemic disease that limits activity (angina , COPD, prior Myocardial infarction) ASA 4: a patient with an incapacitating disease that is a constant threat to life (CHF, renal failure) ASA 5: a moribund patient not expected to survive 24 hrs. (ruptured aneurysm) ASA 6: a declared brain patient whose organs are being harvested. For emergent operations, add the letter E after the classification Grade 2 Sedation Plan: Discussed options with patient/fam Note The patient is an appropriate candidate to undergo the planned procedure, sedation, and anesthesia. The patient immediately re-assessed prior to indication. LEOPOLDO JOHNSTON MD Oct 05, 2016 11:14 am
[2016-10-05] MEDS: fentaNYL INJECTION 100 MCG/2 ML AMP IVP PRN ×2 (11:15→11:17)
[2016-10-05] MEDS: MIDAZOLAM 2 MG/2 ML (VERSED) VIAL IVP PRN ×3 (11:16→11:23)
[2016-10-05 11:25] VITALS: BP 135/88
--- NOTE | 2016-10-05 11:50 | Endoscopy Procedure Report ---
Endoscopy Report Date: Oct 05, 2016 Preoperative Diagnosis: rectal bleeding. Ischemic colitis Study Performed: Colonoscopy Procedure Instrument: Colonoscope Endo Procedure/Findings Findings 1.: Diverticulosis, Internal Hemorrhoids Copy Copies To 1: SHAYNE JARAMILLO MD, XAVIER M MD Oct 05, 2016 11:50 am
--- NOTE | 2016-10-05 11:52 | Discharge Inst-Simple/Standard ---
Discharge Inst-Standard Discharge Medications New, Converted or Re-Newed RX: Other Patient Instructions/Follow Up Plan of Care/Instructions/FU: follow-up with her primary Activity as Tolerated: Yes Discharge Diet: No Restrictions LEOPOLDO JOHNSTON MD Oct 05, 2016 11:52 am
[2016-10-05 11:55] VITALS: BP 137/77
[2016-10-05 12:25] VITALS: BP 137/77
[2016-10-05 12:34] VITALS: BP 135/88
--- NOTE | 2016-10-05 22:24 | OPERATIVE REPORT ---
DATE OF SERVICE: 10/05/2016 PROCEDURE: Colonoscopy. SURGEON: Leopoldo Johnston MD. INDICATION FOR PROCEDURE: In May 2016, this lady was found to have ischemic colitis involving the splenic flexure and the sigmoid colon. This was confirmed by biopsies. She was managed conservatively and her symptoms improved. She reported one episode of rectal bleeding, prompting an ER visit. Currently, this symptom has resolved. Therefore, it was felt reasonable to perform a followup colonoscopy. Informed consent was obtained after reviewing the procedure in detail. DESCRIPTION OF PROCEDURE: She was placed in left lateral decubitus position and her vital signs were monitored. Conscious sedation was achieved using Versed and fentanyl. Digital rectal examination was unremarkable. The colonoscope was then introduced into the rectum and advanced to the cecum. It was then withdrawn slowly and the mucosa examined in a systematic fashion. FINDINGS: 1. Uncomplicated sigmoid diverticulosis. 2. Internal hemorrhoids, the potential source of her bleeding. Previously noted ischemic colitis has resolved completely. She tolerated the procedure well and was taken back to the nursing area in stable condition. IMPRESSION: Resolved ischemic colitis. Possible bleeding due to internal hemorrhoids. Job ID: [id number] DocumentID: [id number] Dictated Date: 10/05/2016 11:48:16 Paper Feeder Date: 10/05/2016 12:39:16 Dictated By: LEOPOLDO JOHNSTON MD [facility]
== END 2016-10-05 12:35 | disposition home or self-care (01) ==
LOC: ENDO 08:56
PROVIDERS: ATTEND Surgery
DX: K57.30 Diverticulosis of large intestine without perforation or abscess without bleeding (principal); K64.8 Other hemorrhoids; I10 Essential (primary) hypertension; G43.909 Migraine, unspecified, not intractable, without status migrainosus; K21.9 Gastro-esophageal reflux disease without esophagitis; E03.9 Hypothyroidism, unspecified; Z79.899 Other long term (current) drug therapy

== ENCOUNTER 2016-11-13 08:36 | Outpatient (RCR) | payer MEDICARE | END 2016-11-13 09:53 | disposition home or self-care (01) | PROVIDERS: ATTEND Family Medicine | DX: M54.5 Low back pain (principal) ==

== ENCOUNTER 2017-06-04 08:20 | Outpatient (RCR) | payer MEDICARE | END 2017-06-04 14:17 | disposition home or self-care (01) | PROVIDERS: ATTEND Family Medicine | DX: M54.41 Lumbago with sciatica, right side (principal); R53.1 Weakness ==

== ENCOUNTER 2017-10-22 10:26 | Outpatient (RCR) | payer MEDICARE | END 2017-10-22 11:32 | disposition home or self-care (01) | PROVIDERS: ATTEND Physician Assistant | DX: M54.5 Low back pain (principal) ==

== ENCOUNTER → 2018-05-31 | Outpatient (CLI) | payer MEDICARE ==
[~2018-05-31] MED LIST changes: +METR-145 PO; -METR500T21 PO
--- NOTE | 2018-05-31 13:55 | Diagnostic Imaging Report ---
INDICATION: Status post recent fall on ice. Neck and back pain. TECHNIQUE: AP, lateral, and swimmers imaging of the thoracic spine. CORRELATION STUDY: None. FINDINGS: Very slight accentuated thoracic kyphotic curvature. Thoracic vertebral body heights overall are fairly well maintained apart from minimal anterior wedging at the mid vertebral body segments. Diffuse thoracic spondylosis is present with disc space narrowing. Endplate osteophyte formation and marginal endplate lipping. Slight retrolisthesis of L1 on L2 and L2 on L3. Lower cervical spondylosis is also demonstrated. Mild leftward curvature. Findings compatible with probable hiatal hernia. IMPRESSION: Diffuse thoracic spondylosis. Multilevel disc space narrowing. No radiographic evidence for acute abnormality of the thoracic spine. Dictated on workstation # [id number]
--- NOTE | 2018-05-31 13:58 | Diagnostic Imaging Report ---
INDICATION: Status post recent fall on ice, neck and back pain. TECHNIQUE: AP, lateral, and odontoid views cervical spine. CORRELATION STUDY: None. FINDINGS: Trace retrolisthesis of C2 on C3. Alignment is otherwise relatively anatomic. Vertebral body heights overall are fairly well maintained. Moderate disc space narrowing at C5-C6 and C6-C7 levels. Endplate osteophyte formation is noted. This does result in some osseous encroachment on the neural foramina, particularly at the C5-C6 and C6-C7 levels. Odontoid is partially obscured but appears to be intact and unremarkable. Prevertebral soft tissues are unremarkable. Asymmetric hypertrophic facet arthropathy throughout the cervical spine. IMPRESSION: 1. Negative for acute findings of the cervical spine. 2. Advanced multilevel cervical spondylosis. Dictated on workstation # [id number]
== END ==
LOC: RAD 09:03
PROVIDERS: ATTEND Family Medicine
DX: M47.812 Spondylosis without myelopathy or radiculopathy, cervical region (principal); M47.814 Spondylosis without myelopathy or radiculopathy, thoracic region; M51.34 Other intervertebral disc degeneration, thoracic region; W00.9XXA Unspecified fall due to ice and snow, initial encounter
CPT/HCPCS: 72040; 72072

== ENCOUNTER 2018-08-31 13:00 | Outpatient (RCR) | payer MEDICARE | END 2018-08-31 15:54 | disposition home or self-care (01) | PROVIDERS: ATTEND Family Medicine | DX: M54.2 Cervicalgia (principal); M54.6 Pain in thoracic spine; M54.5 Low back pain ==

== ENCOUNTER 2019-03-08 08:03 | Outpatient (RCR) | payer MEDICARE | END 2019-03-10 14:49 | disposition home or self-care (01) | PROVIDERS: ATTEND Family Medicine | DX: M54.5 Low back pain (principal); M54.31 Sciatica, right side; R53.1 Weakness ==

== ENCOUNTER 2019-06-13 08:02 | Outpatient (RCR) | payer MEDICARE ==
[~2019-06-13 08:02] MED LIST changes: +SLF500T PO; -SULF500T7 PO
== END 2019-06-13 09:17 | disposition home or self-care (01) ==
PROVIDERS: ATTEND Family Medicine
DX: M54.5 Low back pain (principal); M54.6 Pain in thoracic spine; M54.2 Cervicalgia

== ENCOUNTER → 2019-06-22 | Outpatient (CLI) | payer MEDICARE ==
--- NOTE | 2019-06-22 16:27 | Diagnostic Imaging Report ---
PROCEDURE: CT chest without contrast. TECHNIQUE: Multiple contiguous axial images were obtained through the chest without the use of intravenous contrast. Auto Exposure Controls were utilized during the CT exam to meet ALARA standards for radiation dose reduction. INDICATION: Fell, chest pain. FINDINGS: There are no prior CT chest examinations available for comparison. Reportedly, there is clinical concern regarding injury to the lower ribs on the right. There is no sign of a displaced rib fracture. However, there is slight irregularity of the anterior aspect of the right sixth rib. This finding is questionable for a nondisplaced fracture. The age of this injury however is indeterminate. The lungs are generally clear. There is no sign of a pulmonary contusion or of a pneumothorax. There is no evidence for failure, pneumonia, or pleural effusion either. The heart size is within normal limits. The aorta is not abnormally dilated. There is no mediastinal or hilar adenopathy. The right lobe of the thyroid is not well visualized and may be surgically absent. Correlation with patient's surgical history would be recommended. There is a large 4.1 x 7.0 cm hiatal hernia. The sections through the upper abdomen failed to show any sign of an acute abnormality. IMPRESSION: 1. There is no evidence for an acute cardiopulmonary abnormality. In particular, there is no sign of pulmonary contusion or pneumothorax on the right. 2. There is no evidence for a displaced rib fracture on the right but there is a question of a nondisplaced fracture of the right sixth rib. The age of this injury however is indeterminate. 3. There is a large hiatal hernia. 4. The right lobe of the thyroid is not visualized and may be surgically absent. Correlation with the patient's surgical history would be recommended. Dictated by: Dictated on workstation # [id number]
== END ==
LOC: RAD 14:12
PROVIDERS: ATTEND Family Medicine
DX: R07.9 Chest pain, unspecified (principal); K44.9 Diaphragmatic hernia without obstruction or gangrene; W19.XXXA Unspecified fall, initial encounter
CPT/HCPCS: 71250

== ENCOUNTER → 2020-01-10 | Outpatient (CLI) | payer MEDICARE ==
[~2020-01-10] MED LIST changes: -PANT40TA3 PO; +PANT40TA52 PO
--- NOTE | 2020-01-10 13:49 | Diagnostic Imaging Report ---
INDICATION: Pain and popping in the left mid to lower rib region. TIME OF EXAM: 12:19 PM. FINDINGS: Multiple views of the left ribs were obtained. No definite displaced rib fracture is detected. No parenchymal contusion, effusion, or pneumothorax is detected. IMPRESSION: No displaced rib fracture is detected. Dictated by: Dictated on workstation # [id number]
== END ==
LOC: RAD 12:12
PROVIDERS: ATTEND Family Medicine
DX: R07.81 Pleurodynia (principal)
CPT/HCPCS: 71100

== ENCOUNTER 2020-01-11 08:02 | Outpatient (RCR) | payer MEDICARE | END 2020-01-11 12:45 | disposition home or self-care (01) | PROVIDERS: ATTEND Family Medicine | DX: M54.2 Cervicalgia (principal); M54.9 Dorsalgia, unspecified | CPT/HCPCS: 97162; G0283 ==

== ENCOUNTER 2020-06-11 08:17 | Outpatient (RCR) | payer MEDICARE ==
[~2020-06-11 08:17] MED LIST changes: -LISI-552 PO; +LISI20TA26 PO
== END 2020-06-17 | disposition home or self-care (01) ==
PROVIDERS: ATTEND Family Medicine
DX: M54.2 Cervicalgia (principal); M54.6 Pain in thoracic spine; M54.9 Dorsalgia, unspecified
CPT/HCPCS: 97162; G0283

== ENCOUNTER 2020-09-10 09:00 | Outpatient (RCR) | payer MEDICARE | END 2020-09-16 | disposition home or self-care (01) | PROVIDERS: ATTEND Family Medicine | DX: M54.2 Cervicalgia (principal); M54.6 Pain in thoracic spine ==

== ENCOUNTER 2020-10-15 08:45 | Outpatient (RCR) | payer MEDICARE | END 2020-10-15 09:45 | disposition home or self-care (01) | PROVIDERS: ATTEND Family Medicine | DX: M54.2 Cervicalgia (principal); M54.6 Pain in thoracic spine; I10 Essential (primary) hypertension; M54.16 Radiculopathy, lumbar region ==

== ENCOUNTER 2021-02-25 08:45 | Outpatient (RCR) | payer MEDICARE | END 2021-02-25 09:45 | disposition home or self-care (01) | PROVIDERS: ATTEND Family Medicine | DX: M54.2 Cervicalgia (principal); M54.6 Pain in thoracic spine ==

== ENCOUNTER → 2021-05-19 | Outpatient (RCR) | payer MEDICARE | END | disposition home or self-care (01) | PROVIDERS: ATTEND Family Medicine | DX: M54.50 Low back pain, unspecified (principal); M54.2 Cervicalgia ==

== ENCOUNTER 2021-06-13 08:12 | Outpatient (RCR) | payer MEDICARE | END 2021-06-16 | disposition home or self-care (01) | PROVIDERS: ATTEND Family Medicine | DX: M54.2 Cervicalgia (principal); M54.50 Low back pain, unspecified; M54.6 Pain in thoracic spine; I10 Essential (primary) hypertension ==

== ENCOUNTER 2021-07-14 08:01 | Outpatient (RCR) | payer MEDICARE | END 2021-07-17 | disposition home or self-care (01) | PROVIDERS: ATTEND Family Medicine | DX: M54.2 Cervicalgia (principal); M54.50 Low back pain, unspecified; M54.6 Pain in thoracic spine; I10 Essential (primary) hypertension ==

== ENCOUNTER 2021-08-11 08:03 | Outpatient (RCR) | payer MEDICARE | END 2021-08-11 12:45 | disposition home or self-care (01) | PROVIDERS: ATTEND Family Medicine | DX: M54.2 Cervicalgia (principal); M54.50 Low back pain, unspecified; M54.6 Pain in thoracic spine; I10 Essential (primary) hypertension ==

== ENCOUNTER → 2021-10-16 | Outpatient (RCR) | payer MEDICARE | END | disposition home or self-care (01) | PROVIDERS: ATTEND Family Medicine | DX: M54.9 Dorsalgia, unspecified (principal); M79.672 Pain in left foot; M79.671 Pain in right foot; I10 Essential (primary) hypertension ==

== ENCOUNTER 2021-11-05 08:45 | Outpatient (RCR) | payer MEDICARE | END 2021-11-16 | disposition home or self-care (01) | PROVIDERS: ATTEND Family Medicine | DX: M79.671 Pain in right foot (principal); M79.672 Pain in left foot; I10 Essential (primary) hypertension ==

== ENCOUNTER 2021-11-27 08:23 | Outpatient (RCR) | payer MEDICARE | END 2021-11-27 09:10 | disposition home or self-care (01) | PROVIDERS: ATTEND Family Medicine | DX: M79.671 Pain in right foot (principal); M79.672 Pain in left foot; M54.9 Dorsalgia, unspecified; I10 Essential (primary) hypertension ==

== ENCOUNTER 2021-12-10 10:26 | Outpatient (RCR) | payer MEDICARE | END 2021-12-10 11:33 | disposition home or self-care (01) | PROVIDERS: ATTEND Family Medicine | DX: M54.50 Low back pain, unspecified (principal); G89.29 Other chronic pain; I10 Essential (primary) hypertension ==

== ENCOUNTER → 2022-01-07 | Outpatient (CLI) | payer MEDICARE ==
--- NOTE | 2022-01-07 16:47 | Diagnostic Imaging Report ---
EXAMINATION: Cervical spine, 2 or 3 views. HISTORY: Neck pain. COMPARISON: 05/31/2018. FINDINGS: Vertebral body heights and alignment are normal. No acute fracture is seen. There is mild multilevel cervical spondylosis. Mild multilevel facet hypertrophy without perched facets. The prevertebral soft tissues are normal. The odontoid process is intact. IMPRESSION: Degenerative changes of the cervical spine without acute osseous abnormality. Dictated by: Dictated on workstation # [id number]
--- NOTE | 2022-01-07 17:00 | Diagnostic Imaging Report ---
EXAMINATION: Thoracic spine radiographs, 3 views. COMPARISON: May 31, 2018. HISTORY: 76-year-old female, mid back pain. FINDINGS: There is exaggeration of the normal thoracic kyphosis. There are multilevel moderate to severe disc degenerative changes of the thoracolumbar spine. There is no identified compression deformity. There are moderate to severe disc degenerative changes of the lower cervical spine. There are areas of retrolisthesis at the lower thoracic spine/upper lumbar spine. IMPRESSION: 1. No identified compression deformity or fracture of the thoracic spine. 2. Multilevel moderate to severe disc degenerative changes of the imaged spine. Dictated by: Dictated on workstation # [id number]
--- NOTE | 2022-01-07 17:26 | Diagnostic Imaging Report ---
INDICATION: Pain. COMPARISON: Imaging from the same date as well as from 08/09/2017. TECHNIQUE: Three radiographs of the lumbar spine dated January 07, 2022. FINDINGS: Five lumbar type vertebral bodies are present. 3 mm anterolisthesis of L4 on L5, stable from the prior exam. 3 mm retrolisthesis of L1 on L2, appearing similar to the prior examination. Mild anterior wedging within T12 is noted, appearing slightly worsened when compared to 2018. Additional scattered endplate degenerative changes and minimal anterior wedging is again noted, appearing similar to the prior exam. Severe disc space height loss at T12/L1 with prominent anterior osteophyte formation. Moderate disc space height loss at L1/L2, similar to the prior examination with mild disc space height loss at L2/L3. Scattered facet joint degenerative changes, greatest in the lower lumbar spine. Sacroiliac joints are intact. Degenerative changes are identified within the lower lumbar spine spinous processes, which has worsened since the prior examination. IMPRESSION: Minimal anterior wedging of T12 which is slightly worsened since the prior examination in 2018. Exact chronicity is uncertain. Recommend correlation for focal pain at this location. Should further evaluation of this vertebral body be clinically necessary, CT or preferably MRI would be recommended. Moderate multilevel degenerative changes, as described above, worsened since the prior examination. This includes worsening degenerative changes between the spinous processes within the lower lumbar spine. Dictated by: Dictated on workstation # [id number]
== END ==
LOC: RAD 13:56
PROVIDERS: ATTEND Family Medicine
DX: M47.816 Spondylosis without myelopathy or radiculopathy, lumbar region (principal); M43.16 Spondylolisthesis, lumbar region; M51.35 Other intervertebral disc degeneration, thoracolumbar region; M47.812 Spondylosis without myelopathy or radiculopathy, cervical region
CPT/HCPCS: 72040; 72072; 72100

== ENCOUNTER 2022-02-10 08:00 | Outpatient (RCR) | payer MEDICARE | END 2022-02-16 | disposition home or self-care (01) | PROVIDERS: ATTEND Family Medicine | DX: M50.10 Cervical disc disorder with radiculopathy, unspecified cervical region (principal); M51.15 Intervertebral disc disorders with radiculopathy, thoracolumbar region ==

== ENCOUNTER → 2022-03-18 | Outpatient (RCR) | payer MEDICARE | END | disposition home or self-care (01) | PROVIDERS: ATTEND Family Medicine | DX: M50.30 Other cervical disc degeneration, unspecified cervical region (principal); M51.34 Other intervertebral disc degeneration, thoracic region; M51.36 Other intervertebral disc degeneration, lumbar region; I10 Essential (primary) hypertension ==

== ENCOUNTER 2022-04-08 13:33 | Outpatient (RCR) | payer MEDICARE | END 2022-04-08 14:10 | disposition home or self-care (01) | PROVIDERS: ATTEND Family Medicine | DX: M50.10 Cervical disc disorder with radiculopathy, unspecified cervical region (principal); M51.14 Intervertebral disc disorders with radiculopathy, thoracic region; M51.16 Intervertebral disc disorders with radiculopathy, lumbar region; I10 Essential (primary) hypertension ==

== ENCOUNTER → 2022-05-04 | Outpatient (CLI) | payer MEDICARE ==
[~2022-05-04] MED LIST changes: -POTA10CA43 PO; +POTA10CA44 PO
--- NOTE | 2022-05-04 18:08 | Diagnostic Imaging Report ---
EXAMINATION: Left hip radiograph EXAM DATE: 05/04/2022 11:32 AM COMPARISON: None available. HISTORY: LEFT HIP PAIN TECHNIQUE: Two views FINDINGS: There is no acute fracture, dislocation, or destructive osseous process. Mild degenerative joint space narrowing of the left hip. The soft tissues are normal. IMPRESSION: 1. Degenerative changes of the left hip without acute osseous abnormality. Dictated by: Dictated on workstation # [id number]
== END ==
LOC: RAD 11:11
PROVIDERS: ATTEND Family Medicine
DX: M16.12 Unilateral primary osteoarthritis, left hip (principal)
CPT/HCPCS: 73502

== ENCOUNTER → 2022-05-19 | Outpatient (RCR) | payer MEDICARE | END | disposition home or self-care (01) | PROVIDERS: ATTEND Family Medicine | DX: M50.10 Cervical disc disorder with radiculopathy, unspecified cervical region (principal); M51.14 Intervertebral disc disorders with radiculopathy, thoracic region; M51.16 Intervertebral disc disorders with radiculopathy, lumbar region ==

== ENCOUNTER 2022-06-15 08:30 | Outpatient (RCR) | payer MEDICARE ==
[~2022-06-15 08:30] MED LIST changes: -SLF500T PO; +SULF500T9 PO
== END 2022-06-16 | disposition home or self-care (01) ==
PROVIDERS: ATTEND Family Medicine
DX: M50.10 Cervical disc disorder with radiculopathy, unspecified cervical region (principal); M51.14 Intervertebral disc disorders with radiculopathy, thoracic region; M51.16 Intervertebral disc disorders with radiculopathy, lumbar region

== ENCOUNTER → 2022-07-17 | Outpatient (RCR) | payer MEDICARE | END | disposition home or self-care (01) | PROVIDERS: ATTEND Family Medicine | DX: M50.10 Cervical disc disorder with radiculopathy, unspecified cervical region (principal); M51.14 Intervertebral disc disorders with radiculopathy, thoracic region; M51.16 Intervertebral disc disorders with radiculopathy, lumbar region; I10 Essential (primary) hypertension ==

== ENCOUNTER 2022-08-05 08:27 | Outpatient (RCR) | payer MEDICARE | END 2022-08-16 | disposition home or self-care (01) | PROVIDERS: ATTEND Family Medicine | DX: M50.10 Cervical disc disorder with radiculopathy, unspecified cervical region (principal); M51.14 Intervertebral disc disorders with radiculopathy, thoracic region; M51.16 Intervertebral disc disorders with radiculopathy, lumbar region; I10 Essential (primary) hypertension ==

== ENCOUNTER → 2022-09-16 | Outpatient (RCR) | payer MEDICARE | END | disposition home or self-care (01) | PROVIDERS: ATTEND Family Medicine | DX: M50.10 Cervical disc disorder with radiculopathy, unspecified cervical region (principal); M51.14 Intervertebral disc disorders with radiculopathy, thoracic region; M51.16 Intervertebral disc disorders with radiculopathy, lumbar region; I10 Essential (primary) hypertension ==

== ENCOUNTER 2022-10-14 08:00 | Outpatient (RCR) | payer MEDICARE | END 2022-10-16 | disposition home or self-care (01) | PROVIDERS: ATTEND Family Medicine | DX: M50.10 Cervical disc disorder with radiculopathy, unspecified cervical region (principal); M51.14 Intervertebral disc disorders with radiculopathy, thoracic region; M51.16 Intervertebral disc disorders with radiculopathy, lumbar region ==

== ENCOUNTER 2022-11-11 08:04 | Outpatient (RCR) | payer MEDICARE ==
[~2022-11-11 08:04] MED LIST changes: -POTA10CA44 PO; +POTA10CA84 PO
== END 2022-11-16 | disposition home or self-care (01) ==
PROVIDERS: ATTEND Family Medicine
DX: M50.10 Cervical disc disorder with radiculopathy, unspecified cervical region (principal); M51.14 Intervertebral disc disorders with radiculopathy, thoracic region; M51.16 Intervertebral disc disorders with radiculopathy, lumbar region; I10 Essential (primary) hypertension

== ENCOUNTER 2022-12-15 08:03 | Outpatient (RCR) | payer MEDICARE | END 2022-12-17 | disposition home or self-care (01) | PROVIDERS: ATTEND Family Medicine | DX: M50.10 Cervical disc disorder with radiculopathy, unspecified cervical region (principal); M51.14 Intervertebral disc disorders with radiculopathy, thoracic region; M51.16 Intervertebral disc disorders with radiculopathy, lumbar region ==

== ENCOUNTER → 2023-02-16 | Outpatient (RCR) | payer MEDICARE | END | disposition home or self-care (01) | PROVIDERS: ATTEND Family Medicine | DX: M51.16 Intervertebral disc disorders with radiculopathy, lumbar region (principal); I10 Essential (primary) hypertension; M54.2 Cervicalgia ==

== ENCOUNTER 2023-03-17 08:01 | Outpatient (RCR) | payer MEDICARE | END 2023-03-18 11:44 | disposition home or self-care (01) | PROVIDERS: ATTEND Family Medicine | DX: M51.16 Intervertebral disc disorders with radiculopathy, lumbar region (principal); I10 Essential (primary) hypertension; M54.2 Cervicalgia ==

== ENCOUNTER → 2023-03-24 | Outpatient (CLI) | payer MEDICARE ==
--- NOTE | 2023-03-24 16:22 | Diagnostic Imaging Report ---
PROCEDURE: US thyroid. TECHNIQUE: Multiple real-time grayscale images were obtained of the thyroid in various projections. COMPARISON: None. INDICATION: No history provided. FINDINGS: The left thyroid lobe is unremarkable, homogenous in echotexture with no solid or cystic mass measuring 3 cm in long axis. The isthmus appears normal. The right lobe is absent or atretic. 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 Dictated by: Dictated on workstation # [id number]
== END ==
LOC: RAD 15:49
PROVIDERS: ATTEND Family Medicine
DX: E03.9 Hypothyroidism, unspecified (principal); Z98.890 Other specified postprocedural states
CPT/HCPCS: 76536